=== PATIENT | male | born 1970 | race Caucasian/White ===

== ENCOUNTER 2023-12-09 08:45 | Inpatient (IN) | payer OTHER, SELFPAY ==
--- NOTE | 2023-12-09 | ECG_ITS ---
Test Reason : CHECK QT Blood Pressure : / mmHG Vent. Rate : 090 BPM Atrial Rate : 090 BPM P-R Int : 170 ms QRS Dur : 084 ms QT Int : 376 ms P-R-T Axes : 055 -08 048 degrees QTc Int : 459 ms Normal sinus rhythm with sinus arrhythmia Normal ECG No previous ECGs available Referred By: Venus Womack Electronically Signed By:ANIL SY MD
[2023-12-09 08:58] VITALS: BP 150/80; PULSE 109; O2SAT 96
[2023-12-09 09:00] VITALS: BP 146/97; PULSE 108; RESP 18; TEMP 36.8; O2SAT 97; BMI 26.6
[2023-12-09 09:05] VITALS: BP 146/97; PULSE 108; RESP 18; TEMP 36.8; O2SAT 97
--- NOTE | 2023-12-09 09:07 | ED_ITS ---
HPI - Psych General Chief Complaint: Psychiatric Symptoms Stated Complaint: PSYCH Time Seen by Provider: 12/09/23 08:54 Source: patient, EMS and old records reviewed Mode of arrival: EMS Limitations: no limitations History of Present Illness HPI Narrative: 53 yo male on chronic methadone and ?hx of schizophrenia though he tells me he has no mental health problems was getting his methadone dose and has gone there for a couple of years reportedly he presented very different from his baseline - talking to himself, driving erratic and making a scene in the parking lost, talking to himself loudly in the bathroom and was in the bathroom for over an hour. He of course denies this to me. complaint: anxiety and other Onset (ago): unknown Duration: constant History of same: No Relieving factors: none Exacerbating factors: other Associated psychiatric symptoms: none Associated symptoms: denies other symptoms Treatments prior to arrival: none Related Data Home Medications ?Medication ?Instructions ?Recorded ?Confirmed clonidine HCl 0.1 mg tablet 0.1 mg PO BID PRN Anxiety 12/09/23 12/09/23 risperidone 4 mg tablet 4 mg PO BEDTIME 12/09/23 12/09/23 Allergies Allergy/AdvReac Type Severity Reaction Status Date / Time No Known Allergies Allergy Verified 12/09/23 09:04 Review of Systems 2 Review of Systems: Constitutional : No Fever, No Chills ENT/Mouth : No Ear Pain, No Nasal Congestion, No sore throat Eyes: No Eye Pain, No Swelling, No Redness Cardiovascular : No Chest Pain, No SOB Respiratory : No Cough, No Sputum, No Dyspnea Gastrointestinal : No Nausea, No Vomiting, No Diarrhea, No Hematochezia, No Melena Genitourinary : No Dysuria, No Urinary Frequency, No Hematuria Musculoskeletal : No Myalgias Skin : No Skin Lesions, No rash Neuro : No Weakness, No Numbness, No Paresthesias, No Dizziness, No Headache Psych : positive Anxiety, no Depression, no SI/HI All other systems reviewed and are negative [facility] Past Medical History Attestation statement: The following information was validated with the patient. Medical History Opiate use Social History Social History (Updated 12/09/23 @ 10:03 by Venus Womack DO) Patient Tobacco Use Status: Current everyday Tobacco user Smoked in Last 30 Days: Yes Use of substances other than those prescribed or required for medical reasons: No Advance Directives: No Advance Directives Information Provided: No Do you have a plan to hurt others: No Plan Physical Exam 2 Vital Signs: Vital Signs: Last Vital Signs Temp 98.2 F 12/09/23 09:05 Pulse 108 H 12/09/23 09:05 Resp 18 12/09/23 09:05 BP 146/97 H 12/09/23 09:05 Pulse Ox 97 12/09/23 09:05 O2 Del Method Room Air 12/09/23 09:05 BMI result Body Mass Index 26.6 Appearance: Alert. Oriented X2. No acute distress. Anxious pacing very animated Eyes: Pupils equal, round and reactive to light. ENT: Pharynx normal. Neck: Normal inspection. Neck supple. CVS: Normal heart rate and rhythm. Pulses normal. Respiratory: No respiratory distress. Breath sounds normal. Abdomen: Soft and nontender. Skin: Skin warm and dry. Normal skin color. Normal skin turgor. Extremities: No lower extremity edema. No calf ttp Neuro: Oriented X 2. No motor deficit. No sensory deficit. CN2-12 intact Course Course Course Narrative: S12 inpatient bed search has hx of schizophrenia not taking medications Reevaluation(s) Reevaluation #1: observation care revealed that the patient does meet psychiatric necessity for hospitalization. final disposition discussed with the patient. The patient completed observation care at 3pm. Total time in observation care was 5 hours. Medications Administered Generic Name Dose Route Start Last Admin Trade Name Freq PRN Reason Stop Dose Admin Nicotine Polacrilex 2 mg 12/09/23 09:20 12/09/23 13:21 Nicotine Polacrilex 2 Mg Gum BUCCAL 2 mg Q2H PRN Administration Nicotine Cravings Discontinued Medications Generic Name Dose Route Start Last Admin Trade Name Freq PRN Reason Stop Dose Admin Olanzapine 10 mg 12/09/23 09:29 12/09/23 09:36 Olanzapine Odt 10 Mg Tab.Bridgettdis TRANSLINGU 12/09/23 09:30 10 mg ONCE ONE Administration Medical Decision Making Medical Decision Making [facility] Narrative: 53 yo male with PMH of drug abuse and possible schizophrenia maybe off medications it is unclear he is not forthcoming here with erratic behaviors at his methadone clinic at this time labs, CARE team consult, PO zyprexa ordered. Differential Diagnosis Differential Diagnoses: The differential diagnosis associated with the presentation includes drug abuse, mental health issues Admission/Observation Consideration of admission/observation: Escalation of care including admission/observation considered physician observation started at 1007am pending CARE team consult Consult Healthcare Provider Management of the patient was discussed with: Behavioral Health Provider Lab Data [facility] Lab Attestation statement: I reviewed the patient's lab results. 12/09/23 09:31 12/09/23 09:31 Labs: Lab Results 12/09/23 12/09/23 Range/Units 09:31 12:43 WBC 7.3 (4.8-10.8) X10*3/uL RBC 5.07 (4.60-5.80) X10*6/uL Hgb 15.4 (14.0-18.0) g/dl Hct 43.5 (42.0-52.0) % MCV 85.8 (80.0-98.0) fL MCH 30.4 (27.0-33.0) pg MCHC 35.4 (31.0-36.0) g/dl RDW 12.4 (11.0-16.0) % Plt Count 208 (160-400) X10*3/uL MPV 10.7 (9.4-12.4) fL Immature Gran % (Auto) 0.4 (0.0-0.4) % Neut % (Auto) 75.8 H (45-73) % Lymph % (Auto) 18.8 L (20-40) % Door % (Auto) 4.7 (2-11) % Eos % (Auto) 0.0 (0-4) % Baso % (Auto) 0.3 (0-2) % Lymph # (Auto) 1.4 (1.2-4.9) X10*3/uL Door # (Auto) 0.3 (0.1-1.2) X10*3/uL Eos # (Auto) 0.0 (0.0-0.4) X10*3/uL Baso # (Auto) 0.0 (0.0-0.2) X10*3/uL Abs Immat Gran (auto) 0.03 (0.00-0.03) X10*3/uL Absolute Neuts (auto) 5.5 (2.0-8.3) x10*3/uL Absolute Nucleated RBC 0.000 (0.0-0.012) X10*3/uL Nucleated RBC % (auto) 0.0 (0.0-0.2) /100WBC Sodium 138 (135-145) mmol/L Potassium 4.7 (3.3-5.1) mmol/L Chloride 104 (96-108) mmol/L Carbon Dioxide 20 L (22-29) mmol/L Anion Gap 19 (12-20) BUN 14 (9-16) mg/dL Creatinine 1.36 (0.5-1.4) mg/dL Estim Creat Clear Calc 51.7 Estimated GFR 55 Random Glucose 185 H (60-115) mg/dL Calcium 9.4 (8.4-10.2) mg/dL Magnesium 2.0 (1.6-2.6) mg/dL Total Bilirubin 0.4 (0.0-1.0) mg/dL Direct Bilirubin 0.1 (0.0-0.5) mg/dL AST 27 (5-37) U/L ALT 29 (0-40) U/L Alkaline Phosphatase 97 (39-117) U/L Total Protein 8.3 H (6.5-8.0) g/dL Albumin 4.5 (3.5-5.0) g/dL TSH 1.27 (0.32-4.0) uIU/mL Urine Color Yellow Urine Appearance Clear Urine pH 6.0 (5.0-9.0) Ur Specific [place] 1.010 (1.005-1.025) Urine Protein Negative (Neg-Trace) mg/dL Urine Glucose (UA) Negative (Negative) mg/dL Urine Ketones Negative (Negative) mg/dL Urine Blood Negative (Negative) Urine Nitrite Negative (Negative) Ur Leukocyte Esterase Trace H (Negative) Urine RBC 0-2 (0-2) /HPF Urine WBC 0-5 (0-5) /HPF Ur Squamous Epith Cells 0-2 (0-2) /HPF Urine Bacteria None Seen (None Seen) Hyaline Casts 0-2 (0-2) /LPF Urine Opiates Screen Not Detected (Not Detect) Ur Buprenorphine Scrn Not Detected (Not Detect) ng/mL Ur Oxycodone Screen Not Detected (Not Detect) ng/mL Urine Methadone Screen Positive H (Not Detect) ng/mL Urine Fentanyl Screen POSITIVE H (Not Detect) Ur Barbiturates Screen Not Detected (Not Detect) Ur Phencyclidine Scrn Not Detected (Not Detect) Ur Amphetamines Screen Not Detected (Not Detect) U Benzodiazepines Scrn Not Detected (Not Detect) Urine Cocaine Screen Not Detected (Not Detect) U Marijuana (THC) Screen Not Detected (Not Detect) Ethyl Alcohol < 10 mg/dL Independent Historian Clinical information obtained from an independent historian. History obtained from or confirmed by: EMS External Record Review External record reviewed: Outpatient record Discharge Plan Discharge Clinical Impression: Acute anxiety, Chronic schizophrenia Patient Disposition: Admitted As Inpatient Interventions: [place]-Suicide Risk Severity Scale Last Done: 12/09/23 09:13 Admission Worksheet (ED) Last Done: 12/09/23 14:51 Discharge Date/Time: 12/09/23 14:52
[2023-12-09 09:34] LABS: MANUAL DIFF FLAG NO
[2023-12-09 09:36] LABS: Basophils Percent Auto 0.3 % (0-2); Hematocrit 43.5 % (42.0-52.0); Hemoglobin 15.4 g/dl (14.0-18.0); Imm Gran Abs Auto 0.03 X10*3/uL (0.00-0.03); Imm Gran Pct Auto 0.4 % (0.0-0.4); Lymphocytes Absolute Auto 1.4 X10*3/uL (1.2-4.9); Lymphocytes Percent Auto 18.8 % (20-40); Mean Corpuscular HGB Conc 35.4 g/dl (31.0-36.0); Mean Corpuscular Hemoglobin 30.4 pg (27.0-33.0); Mean Corpuscular Volume 85.8 fL (80.0-98.0); Mean Platelet Volume 10.7 fL (9.4-12.4); Monocytes Absolute Auto 0.3 X10*3/uL (0.1-1.2); Monocytes Percent Auto 4.7 % (2-11); Neutrophils Absolute Auto 5.5 x10*3/uL (2.0-8.3); Neutrophils Percent Auto 75.8 % (45-73); Platelet Count 208 X10*3/uL (160-400); Red Blood Count 5.07 X10*6/uL (4.60-5.80); Red Cell Distribution Width 12.4 % (11.0-16.0); White Blood Count 7.3 X10*3/uL (4.8-10.8)
[2023-12-09] MEDS: OLANZapine ODT 10 MG TAB.RAPDIS TRANSLINGU (09:36)
[2023-12-09] MEDS: Nicotine Polacrilex 2 MG GUM BUCCAL ×2 (09:40→13:21)
[2023-12-09 10:04] LABS: Alanine Aminotransferase 29 U/L (0-40); Albumin Level 4.5 g/dL (3.5-5.0); Alkaline Phosphatase 97 U/L (39-117); Anion Gap 19 (12-20); Aspartate Amino Transferase 27 U/L (5-37); Bilirubin Direct 0.1 mg/dL (0.0-0.5); Bilirubin Total 0.4 mg/dL (0.0-1.0); Blood Urea Nitrogen 14 mg/dL (9-16); Calcium 9.4 mg/dL (8.4-10.2); Carbon Dioxide 20 mmol/L (22-29); Chloride 104 mmol/L (96-108); Creatinine Clr Calc Pharmacy 51.7; Estimated Glomerular Filt Rate 55; Ethanol < 10 mg/dL; Glucose Random 185 mg/dL (60-115); Potassium 4.7 mmol/L (3.3-5.1); Sodium 138 mmol/L (135-145); Total Protein 8.3 g/dL (6.5-8.0)
[2023-12-09 10:12] LABS: TSH reflex Free T4 1.27 uIU/mL (0.32-4.0)
--- NOTE | 2023-12-09 10:20 | PC.NURSE ---
DIANNE Clement after the patient was acting erratic at the facility locking himself in the bathroom for 45 minutes to an hour; splashing water all over. Per EMS report the patient was being seen for schizophrenia and being off medications. At the time of admission the patient denies suicidal and homicidal ideations as well as denies auditory and visual hallucinations. Patient is calm, cooperative and pleasant with staff.
--- NOTE | 2023-12-09 11:11 | MHC.CARE ---
Left VM for patient's mother, Kirti, , no PHI disclosed, requesting call back.
[2023-12-09 12:59] LABS: Amphetamine Screen Urine Not Detected (Not Detect); Barbiturates, Urine Not Detected (Not Detect); Benzodiazepines Screen Urine Not Detected (Not Detect); Buprenorphine Scr Not Detected (Not Detect); Cannabinoid Screen Urine Not Detected (Not Detect); Cocaine Screen Urine Not Detected (Not Detect); Fentanyl, urine POSITIVE (Not Detect); Methadone Screen, Urine Positive (Not Detect); Opiate Screen Urine Not Detected (Not Detect); Oxycodone Screen Urine Not Detected (Not Detect); Phencyclidine Screen Urine Not Detected (Not Detect)
[2023-12-09 13:17] LABS: Appearance Urine Clear; Color Urine Yellow; Glucose Urine UA Negative (Negative); Leukocyte Esterase Urine Trace (Negative); Nitrite Urine Negative (Negative); UMIC TRIGGER UACC YES; Urine Blood Negative (Negative); Urine Ketones Negative (Negative); Urine Protein Negative (Neg-Trace)
[2023-12-09 13:28] LABS: Bacteria Urine None Seen (None Seen); Hyaline Casts Urine 0-2 /LPF (0-2); RBC Urine 0-2 /HPF (0-2); Squamous Epithelial Cell Urine 0-2 /HPF (0-2); WBC Urine 0-5 /HPF (0-5)
[2023-12-09 15:13] VITALS: BMI 29.0
--- NOTE | 2023-12-09 15:49 | P.HPPS_ITS ---
HPI Date of Service: 12/09/23 Chief Complaint: Psychosis HPI Narrative: per CARE team kennedy, pt was BIBA from [facility], where he was noted to have been behaving bizarrely and erratically and displaying signs of psychosis or intoxication. per RN Marion at [facility], pt was not acting himself. he had parked poorly in the lot, clearly RIS and drawing attention for it, randomly deploying the [employer] wipers, having a car smelling of burnt rubber in the cabin, nodding off. he became agitated and police/EMS were called out of concern he was going to drive impaired. he was redirected by [facility] to a bathroom at the facility, where he stayed for an hour babbling, no words were comprehensible, but non-stop talking. pt then became more engageable and was amenable to transport to [facility]. per collateral from pt's sister alda, pt recently lost his job. she believes that that status change may be related to this presentation. she informed CARE team that he recently told her he believes people are following him, he is afraid for his safety, eight people are talking to him. pt is reportedly not compliant with psychiatric medications. Desirae with [facility] informed CARE team that pt had recently reported to precriber that people are trying to hurt him and that an WARREN had jennifer discussed for him. on interview with on unit, pt presents as diminutive, resigned. acknowledges he has been using opioids and that his behaviors this morning can be attributed to intoxication. he c/o craving and asks that methadone dosing be increased to 12 mg daily, which is agreed to. reports hearing all the time of bosses GPSing me. describes akathisia with any medication he has been on in the past for the AH. per collateral from [facility] pharmacy, the only two he's been on in the past year are olanzapine to 15 mg daily and risperidone to 4 mg daily. pt states he doesn't want to take anything other than ativan; informs him ativan will not be prescribed for him as it is not indicated for his condition. informs pt he will obtain collateral from [facility] and Rx something unlikely to cause akathisia but which pt has never tried. pt states he will not take it, MD expresses hope he does otherwise. Past Psychiatric History: hosps: none SA: none SIB: none HIB: none outpt: seen at [facility] clinic by [facility] resident Dr. Montes. per sister, psychotic Sx began about 2 years ago. for the past 7 months. no prior mental health care. Medical Evaluation Reviewed: Yes [facility] Medical History Opiate use Narrative: denies medical probs Family History: per sister, no known FH of mental illness. Social History: until 2 years ago worked and supported himself, lived in his apartment alone. 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 reports he has lived alone in his [facility] for 27 years. spent most of his life in [place]. reports close family, father , mother living. 2 sisters and 1 brother, all supportive of him. has a 27 yo daughter living in [place]. HS Grad. attended trade school. presently unemployed. income is unemployment benefits. Substance History: opioids - h/o opioid use disorder, on methadone maintenance 7 mg daily. utox methadone and fentanyl POS. sister section 35d him one year ago. reports getting hooked on percocet 5-7 years ago after surgery, has been using since. admits using [employer]. alcohol - denies use other drugs - denies use nicotine - 1/2 ppd cannabis - none Trauma History: denies Diagnostics Vital Signs (24Hr): Vital Signs - 24 hr 12/09/23 09:00 12/09/23 09:05 Temperature 98.2 F 98.2 F Pulse Rate 108 H 108 H Respiratory Rate 18 18 Blood Pressure 146/97 H 146/97 H Pulse Oximetry 97 97 Oxygen Delivery Method Room Air Room Air BMI result Body Mass Index 29.0 Labs 12/09/23 09:31 12/09/23 09:31 Labs: Laboratory Results - last 48 hr 12/09/23 12/09/23 09:31 12:43 WBC 7.3 RBC 5.07 Hgb 15.4 Hct 43.5 MCV 85.8 MCH 30.4 MCHC 35.4 RDW 12.4 Plt Count 208 MPV 10.7 Immature Gran % (Auto) 0.4 Neut % (Auto) 75.8 H Lymph % (Auto) 18.8 L [place] % (Auto) 4.7 Eos % (Auto) 0.0 Baso % (Auto) 0.3 Lymph # (Auto) 1.4 [place] # (Auto) 0.3 Eos # (Auto) 0.0 Baso # (Auto) 0.0 Abs Immat Gran (auto) 0.03 Absolute Neuts (auto) 5.5 Absolute Nucleated RBC 0.000 Nucleated RBC % (auto) 0.0 Sodium 138 Potassium 4.7 Chloride 104 Carbon Dioxide 20 L Anion Gap 19 BUN 14 Creatinine 1.36 Estim Creat Clear Calc 51.7 Estimated GFR 55 Random Glucose 185 H Calcium 9.4 Magnesium 2.0 Total Bilirubin 0.4 Direct Bilirubin 0.1 AST 27 ALT 29 Alkaline Phosphatase 97 Total Protein 8.3 H Albumin 4.5 TSH 1.27 Urine Color Yellow Urine Appearance Clear Urine pH 6.0 Ur Specific [place] 1.010 Urine Protein Negative Urine Glucose (UA) Negative Urine Ketones Negative Urine Blood Negative Urine Nitrite Negative Ur Leukocyte Esterase Trace H Urine RBC 0-2 Urine WBC 0-5 Ur Squamous Epith Cells 0-2 Urine Bacteria None Seen Hyaline Casts 0-2 Urine Opiates Screen Not Detected Ur Buprenorphine Scrn Not Detected Ur Oxycodone Screen Not Detected Urine Methadone Screen Positive H Urine Fentanyl Screen POSITIVE H Ur Barbiturates Screen Not Detected Ur Phencyclidine Scrn Not Detected Ur Amphetamines Screen Not Detected U Benzodiazepines Scrn Not Detected Urine Cocaine Screen Not Detected U Marijuana (THC) Screen Not Detected Ethyl Alcohol < 10 Meds/Allergies Meds Home Medications ?Medication ?Instructions ?Recorded ?Confirmed ?Type clonidine HCl 0.1 mg tablet 0.1 mg PO BID PRN Anxiety 12/09/23 12/09/23 History risperidone 4 mg tablet 4 mg PO BEDTIME 12/09/23 12/09/23 History Allergies Allergies Allergy/AdvReac Type Severity Reaction Status Date / Time No Known Allergies Allergy Verified 12/09/23 09:04 Mental Status Exam Mental Status Exam Narrative: diminutive, adequately dressed and groomed in [facility]. cooperative, no PMA/PMR. speech nml rate, amount. decr loudness, nml latency, flattened tone. thoughts linear and logical. affect constricted, hypo-intense, non-labile. mood average. \denies SI/HI/VH. endorses AH of his bosses GPSing me. Assessment & Plan Assessment & Plan (1) Unspecified psychosis: Status: Acute Code(s): F29 - Unspecified psychosis not due to a substance or known physiological condition (2) Opioid use disorder: Status: Acute Code(s): F11.90 - Opioid use, unspecified, uncomplicated Plan DC risperidone due to akathisia. [facility], pt also has been on olanzapine in the past 2 years (no other antipsychotics [facility]). try thorazine 50 mg PO QHS for reduced likelihood of akathisia. pt reports ongoing opioid misuse, asks to increase methadone to 12 mg daily for cravings. MD agrees. Patient educated on: diagnosis, medication risk/benefits and substance abuse Reason for continued inpatient stay Substantial Risk for: inability to function Statement Statement: I have reviewed the history and physical and performed a pertinent examination on my patient. No changes have occurred unless specified. If the History and Physical was not performed prior to admission, the Hospitalist's service will be consulted for completing the admission physical. Time Spent With Patient Time: Total time managing care of this patient today __55__ minutes.
[2023-12-09 15:54] VITALS: BP 139/76; PULSE 99; RESP 16; TEMP 36.9; O2SAT 99
--- NOTE | 2023-12-09 18:23 | PC.ADMIT ---
Latisha was admitted to at 1455 from [facility] POD on a CV for treatment of unspecified psychosis. Prior to admission the patient was evaluated by [facility] crisis and subsequently brought to [facility] due to acting erratically and delusional at [facility], where the patient goes for Methadone treatment. Per patient report, he used heroin/fentanyl and then went to [facility], where he had the episode. According to the crisis eval, the patient was reported to ?not be acting himself? including visibly responding to internal stimuli, driving his car dangerously in the parking lot, and appearing sedated. EMS/PD was initially called and subsequently the crisis team. Per the patient, he has been hearing the voices of his ex coworkers, eight or nine of them from a previous company, coming through his radio for years. They reportedly ?torment? him with statements such as ?we know what you did; you belong in shelter; you?re worthless,? etc. Patient later stated during assessment that he hears these voices at all times, regardless of being in the car. At admission, the patient was alert and oriented x 4. He was also calm, cooperative, pleasant and willing to engage with RN. He has ongoing anxiety and depression due to recent of stressors of losing his job and constantly hearing the voices. The patient does appear to lack insight into the voices being auditory hallucinations. He reports broken sleep patterns as a result of the ongoing voices as well. Pt is an everyday smoker and requested nicotine replacement therapy. His tox screen was positive for methadone and fentanyl. Per patient, he only uses occasionally and ?hates to use drugs, but they drown out the voices.? No known allergies or medical diagnoses at this time. No physical complaints noted. Pt oriented to unit. Skin check performed. Pt has surgical scarring to abdomen from reported surgery when he was a child. Otherwise, skin intact. Pt reports feeling safe on the unit and denies SI/HI, as well as AH/VH. Patient placed on 15 minute checks for safety.
[2023-12-09 19:54] VITALS: BP 124/71; PULSE 71; RESP 16; TEMP 36.5; O2SAT 96
[2023-12-09] MEDS: chlorproMAZINE HCl 25 MG TABLET 50 MG PO (21:27)
[2023-12-09] MEDS: traZODone HCL 50 MG TABLET PO (21:29)
[2023-12-09] MEDS: hydrOXYzine HCL 25 MG TABLET PO (21:29)
[2023-12-10 07:15] VITALS: BP 105/56; PULSE 67; RESP 14; TEMP 36.4; O2SAT 96
[2023-12-10] MEDS: methADONE HCl 20 MG/2 ML ORAL.CONC 12 MG PO (08:27)
--- NOTE | 2023-12-10 10:41 | P.PNPSI_ITS ---
Subjective Subjective Date of Service: 12/10/23 Reason For Visit: Psychosis Subjective Notes: Conditional Voluntary Interim History: Patient was seen and discussed in rounds today. Records and plans were reviewed. He has settled in. No behavioral problems. Continues to show signs of response to internal stimuli. He has been medication compliant. Labs were reviewed. Eating and sleeping adequately. No complaints or side effects. No changes were made today Medication Compliance: Yes Side effects from medications: No Review of Systems Review of Systems Yes all other systems are reviewed and are negative Mental Status Exam Mental Status Exam Narrative: In today's visit he is alert, oriented and interactive. Normal speech. Little eye contact. Affect is subdued. Denies any visual hallucinations. No overt delusions. Admits to auditory hallucinations. No SI/HI. Cognitively is grossly intact. Judgment is intact Diagnostics Vital Signs (24Hr): Vital Signs - 24 hr 12/09/23 15:54 12/09/23 19:54 12/10/23 07:15 Temperature 98.5 F 97.7 F 97.6 F Pulse Rate 99 71 67 Respiratory Rate 16 16 14 Blood Pressure 139/76 124/71 105/56 L Pulse Oximetry 99 96 96 Oxygen Delivery Method Room Air Room Air Room Air BMI result Body Mass Index 29.0 Labs 12/09/23 09:31 12/09/23 09:31 Labs: Laboratory Results - last 48 hr 12/09/23 12/09/23 09:31 12:43 WBC 7.3 RBC 5.07 Hgb 15.4 Hct 43.5 MCV 85.8 MCH 30.4 MCHC 35.4 RDW 12.4 Plt Count 208 MPV 10.7 Immature Gran % (Auto) 0.4 Neut % (Auto) 75.8 H Lymph % (Auto) 18.8 L [place] % (Auto) 4.7 Eos % (Auto) 0.0 Baso % (Auto) 0.3 Lymph # (Auto) 1.4 [place] # (Auto) 0.3 Eos # (Auto) 0.0 Baso # (Auto) 0.0 Abs Immat Gran (auto) 0.03 Absolute Neuts (auto) 5.5 Absolute Nucleated RBC 0.000 Nucleated RBC % (auto) 0.0 Sodium 138 Potassium 4.7 Chloride 104 Carbon Dioxide 20 L Anion Gap 19 BUN 14 Creatinine 1.36 Estim Creat Clear Calc 51.7 Estimated GFR 55 Random Glucose 185 H Calcium 9.4 Magnesium 2.0 Total Bilirubin 0.4 Direct Bilirubin 0.1 AST 27 ALT 29 Alkaline Phosphatase 97 Total Protein 8.3 H Albumin 4.5 TSH 1.27 Urine Color Yellow Urine Appearance Clear Urine pH 6.0 Ur Specific [place] 1.010 Urine Protein Negative Urine Glucose (UA) Negative Urine Ketones Negative Urine Blood Negative Urine Nitrite Negative Ur Leukocyte Esterase Trace H Urine RBC 0-2 Urine WBC 0-5 Ur Squamous Epith Cells 0-2 Urine Bacteria None Seen Hyaline Casts 0-2 Urine Opiates Screen Not Detected Ur Buprenorphine Scrn Not Detected Ur Oxycodone Screen Not Detected Urine Methadone Screen Positive H Urine Fentanyl Screen POSITIVE H Ur Barbiturates Screen Not Detected Ur Phencyclidine Scrn Not Detected Ur Amphetamines Screen Not Detected U Benzodiazepines Scrn Not Detected Urine Cocaine Screen Not Detected U Marijuana (THC) Screen Not Detected Ethyl Alcohol < 10 Medications Medications Current Medications Acetaminophen (Acetaminophen 325 Mg Tablet) 650 mg PO Q6H PRN PRN Reason: Headache/Pain Mild Scale (1-3) Al Hydroxide/Mg Hydroxide (Magnesium Hydrox/Alum Hydrox 30 Ml Oral.Susp) 30 ml PO Q6H PRN PRN Reason: Heartburn/Nausea Chlorpromazine HCl (Chlorpromazine Hcl 25 Mg Tablet) 50 mg PO BEDTIME SANDRITA Last Admin: 12/09/23 21:27 Dose: 50 mg Clonidine HCl (Clonidine Hcl 0.1 Mg Tablet) 0.1 mg PO BID PRN; Protocol PRN Reason: severe anxiety Hydroxyzine HCl (Hydroxyzine Hcl 25 Mg Tablet) 25 mg PO Q6H PRN PRN Reason: Anxiety Last Admin: 12/09/23 21:29 Dose: 25 mg Magnesium Hydroxide (Milk Of Magnesia 30 Ml Oral.Susp) 30 ml PO DAILY PRN PRN Reason: Constipation Methadone HCl (Methadone Hcl 20 Mg/2 Ml Oral.Conc) 12 mg PO DAILY SANDRITA Last Admin: 12/10/23 08:27 Dose: 12 mg Nicotine Polacrilex (Nicotine Polacrilex 2 Mg Gum) 2 mg BUCCAL Q2H PRN PRN Reason: Nicotine Cravings Last Admin: 12/09/23 13:21 Dose: 2 mg Trazodone HCl (Trazodone Hcl 50 Mg Tablet) 50 mg PO BEDTIME MRX1 PRN PRN Reason: Insomnia Last Admin: 12/09/23 21:29 Dose: 50 mg Allergies Allergies Allergy/AdvReac Type Severity Reaction Status Date / Time No Known Allergies Allergy Verified 12/09/23 09:04 Assessment & Plan Assessment & Plan (1) Unspecified psychosis: Status: Acute Code(s): F29 - Unspecified psychosis not due to a substance or known physiological condition (2) Opioid use disorder: Status: Acute Code(s): F11.90 - Opioid use, unspecified, uncomplicated Plan DC risperidone due to akathisia. [facility], pt also has been on olanzapine in the past 2 years (no other antipsychotics [facility]). try thorazine 50 mg PO QHS for reduced likelihood of akathisia. pt reports ongoing opioid misuse, asks to increase methadone to 12 mg daily for cravings. agrees. 12/09: Continue current treatment and plan Reason for continued inpatient stay Substantial Risk for: med/psych decompensation Time Spent With Patient Time: Total time managing care of this patient today ____ minutes.
--- NOTE | 2023-12-10 12:23 | HO.PSYCHPN ---
Subjective Subjective Date of Service: 12/10/23 Reason For Visit: Psychosis Subjective Notes: Conditional Voluntary Diagnostics Vital Signs (24Hr): Vital Signs - 24 hr 12/09/23 15:54 12/09/23 19:54 12/10/23 07:15 Temperature 98.5 F 97.7 F 97.6 F Pulse Rate 99 71 67 Respiratory Rate 16 16 14 Blood Pressure 139/76 124/71 105/56 L Pulse Oximetry 99 96 96 Oxygen Delivery Method Room Air Room Air Room Air BMI result Body Mass Index 29.0 Labs 12/09/23 09:31 12/09/23 09:31 Labs: Laboratory Results - last 48 hr 12/09/23 12/09/23 09:31 12:43 WBC 7.3 RBC 5.07 Hgb 15.4 Hct 43.5 MCV 85.8 MCH 30.4 MCHC 35.4 RDW 12.4 Plt Count 208 MPV 10.7 Immature Gran % (Auto) 0.4 Neut % (Auto) 75.8 H Lymph % (Auto) 18.8 L [place] % (Auto) 4.7 Eos % (Auto) 0.0 Baso % (Auto) 0.3 Lymph # (Auto) 1.4 [place] # (Auto) 0.3 Eos # (Auto) 0.0 Baso # (Auto) 0.0 Abs Immat Gran (auto) 0.03 Absolute Neuts (auto) 5.5 Absolute Nucleated RBC 0.000 Nucleated RBC % (auto) 0.0 Sodium 138 Potassium 4.7 Chloride 104 Carbon Dioxide 20 L Anion Gap 19 BUN 14 Creatinine 1.36 Estim Creat Clear Calc 51.7 Estimated GFR 55 Random Glucose 185 H Calcium 9.4 Magnesium 2.0 Total Bilirubin 0.4 Direct Bilirubin 0.1 AST 27 ALT 29 Alkaline Phosphatase 97 Total Protein 8.3 H Albumin 4.5 TSH 1.27 Urine Color Yellow Urine Appearance Clear Urine pH 6.0 Ur Specific [place] 1.010 Urine Protein Negative Urine Glucose (UA) Negative Urine Ketones Negative Urine Blood Negative Urine Nitrite Negative Ur Leukocyte Esterase Trace H Urine RBC 0-2 Urine WBC 0-5 Ur Squamous Epith Cells 0-2 Urine Bacteria None Seen Hyaline Casts 0-2 Urine Opiates Screen Not Detected Ur Buprenorphine Scrn Not Detected Ur Oxycodone Screen Not Detected Urine Methadone Screen Positive H Urine Fentanyl Screen POSITIVE H Ur Barbiturates Screen Not Detected Ur Phencyclidine Scrn Not Detected Ur Amphetamines Screen Not Detected U Benzodiazepines Scrn Not Detected Urine Cocaine Screen Not Detected U Marijuana (THC) Screen Not Detected Ethyl Alcohol < 10 Medications Medications Current Medications Acetaminophen (Acetaminophen 325 Mg Tablet) 650 mg PO Q6H PRN PRN Reason: Headache/Pain Mild Scale (1-3) Al Hydroxide/Mg Hydroxide (Magnesium Hydrox/Alum Hydrox 30 Ml Oral.Susp) 30 ml PO Q6H PRN PRN Reason: Heartburn/Nausea Bacitracin (Bacitracin Oint 14 Gm Tube) 1 appl TOPICAL BID PRN; Protocol PRN Reason: Rash Chlorpromazine HCl (Chlorpromazine Hcl 25 Mg Tablet) 50 mg PO BEDTIME SANDRITA Last Admin: 12/09/23 21:27 Dose: 50 mg Clonidine HCl (Clonidine Hcl 0.1 Mg Tablet) 0.1 mg PO BID PRN; Protocol PRN Reason: severe anxiety Hydroxyzine HCl (Hydroxyzine Hcl 25 Mg Tablet) 25 mg PO Q6H PRN PRN Reason: Anxiety Last Admin: 12/09/23 21:29 Dose: 25 mg Magnesium Hydroxide (Milk Of Magnesia 30 Ml Oral.Susp) 30 ml PO DAILY PRN PRN Reason: Constipation Methadone HCl (Methadone Hcl 20 Mg/2 Ml Oral.Conc) 12 mg PO DAILY SANDRITA Last Admin: 12/10/23 08:27 Dose: 12 mg Nicotine Polacrilex (Nicotine Polacrilex 2 Mg Gum) 2 mg BUCCAL Q2H PRN PRN Reason: Nicotine Cravings Last Admin: 12/09/23 13:21 Dose: 2 mg Trazodone HCl (Trazodone Hcl 50 Mg Tablet) 50 mg PO BEDTIME MRX1 PRN PRN Reason: Insomnia Last Admin: 12/09/23 21:29 Dose: 50 mg Allergies Allergies Allergy/AdvReac Type Severity Reaction Status Date / Time No Known Allergies Allergy Verified 12/09/23 09:04 Assessment & Plan Assessment & Plan (1) Unspecified psychosis: Status: Acute Code(s): F29 - Unspecified psychosis not due to a substance or known physiological condition (2) Opioid use disorder: Status: Acute Code(s): F11.90 - Opioid use, unspecified, uncomplicated Plan DC risperidone due to akathisia. per [facility], pt also has been on olanzapine in the past 2 years (no other antipsychotics in [facility] records). try thorazine 50 mg PO QHS for reduced likelihood of akathisia. pt reports ongoing opioid misuse, asks to increase methadone to 12 mg daily for cravings. MD agrees. 12/09: Continue current treatment and plan Time Spent With Patient Time: Total time managing care of this patient today ____ minutes.
[2023-12-10 20:00] VITALS: BP 151/72; PULSE 86; RESP 18; TEMP 36.8; O2SAT 97
[2023-12-10] MEDS: traZODone HCL 50 MG TABLET PO (21:39)
[2023-12-10] MEDS: hydrOXYzine HCL 25 MG TABLET PO (21:39)
[2023-12-10] MEDS: chlorproMAZINE HCl 25 MG TABLET 50 MG PO (21:39)
--- NOTE | 2023-12-10 23:10 | PC.NURSE ---
Latisha was given atarax PO prn for mild anxiety.
[2023-12-11 07:34] VITALS: BP 142/80; PULSE 79; RESP 16; TEMP 36.6; O2SAT 97
[2023-12-11] MEDS: methADONE HCl 20 MG/2 ML ORAL.CONC 12 MG PO (08:32)
--- NOTE | 2023-12-11 09:03 | HO.PSYCHPN ---
Subjective Subjective Date of Service: 12/11/23 Reason For Visit: Psychosis Subjective Notes: Conditional Voluntary Interim History: Patient was seen and discussed in rounds today. Records and plans were reviewed. He continues to be mostly isolative and in his room. Some auditory hallucinations reported. Eating and sleeping adequately. Some anxiety and depression also present. No SI. No side effects. No changes were made today Medication Compliance: Yes Side effects from medications: No Review of Systems Review of Systems Yes all other systems are reviewed and are negative Mental Status Exam Mental Status Exam Narrative: In today's visit he is alert, oriented and interactive. Normal speech. Little eye contact. Affect is subdued. Denies any visual hallucinations. No overt delusions. Admits to auditory hallucinations. No SI/HI. Cognitively is grossly intact. Judgment is intact Diagnostics Vital Signs (24Hr): Vital Signs - 24 hr 12/10/23 20:00 12/11/23 07:34 Temperature 98.3 F 97.8 F Pulse Rate 86 79 Respiratory Rate 18 16 Blood Pressure 151/72 H 142/80 H Pulse Oximetry 97 97 Oxygen Delivery Method Room Air Room Air BMI result Body Mass Index 29.0 Labs 12/09/23 09:31 12/09/23 09:31 Labs: Laboratory Results - last 48 hr 12/09/23 12/09/23 09:31 12:43 WBC 7.3 RBC 5.07 Hgb 15.4 Hct 43.5 MCV 85.8 MCH 30.4 MCHC 35.4 RDW 12.4 Plt Count 208 MPV 10.7 Immature Gran % (Auto) 0.4 Neut % (Auto) 75.8 H Lymph % (Auto) 18.8 L [place] % (Auto) 4.7 Eos % (Auto) 0.0 Baso % (Auto) 0.3 Lymph # (Auto) 1.4 [place] # (Auto) 0.3 Eos # (Auto) 0.0 Baso # (Auto) 0.0 Abs Immat Gran (auto) 0.03 Absolute Neuts (auto) 5.5 Absolute Nucleated RBC 0.000 Nucleated RBC % (auto) 0.0 Sodium 138 Potassium 4.7 Chloride 104 Carbon Dioxide 20 L Anion Gap 19 BUN 14 Creatinine 1.36 Estim Creat Clear Calc 51.7 Estimated GFR 55 Random Glucose 185 H Calcium 9.4 Magnesium 2.0 Total Bilirubin 0.4 Direct Bilirubin 0.1 AST 27 ALT 29 Alkaline Phosphatase 97 Total Protein 8.3 H Albumin 4.5 TSH 1.27 Urine Color Yellow Urine Appearance Clear Urine pH 6.0 Ur Specific [place] 1.010 Urine Protein Negative Urine Glucose (UA) Negative Urine Ketones Negative Urine Blood Negative Urine Nitrite Negative Ur Leukocyte Esterase Trace H Urine RBC 0-2 Urine WBC 0-5 Ur Squamous Epith Cells 0-2 Urine Bacteria None Seen Hyaline Casts 0-2 Urine Opiates Screen Not Detected Ur Buprenorphine Scrn Not Detected Ur Oxycodone Screen Not Detected Urine Methadone Screen Positive H Urine Fentanyl Screen POSITIVE H Ur Barbiturates Screen Not Detected Ur Phencyclidine Scrn Not Detected Ur Amphetamines Screen Not Detected U Benzodiazepines Scrn Not Detected Urine Cocaine Screen Not Detected U Marijuana (THC) Screen Not Detected Ethyl Alcohol < 10 Medications Medications Current Medications Acetaminophen (Acetaminophen 325 Mg Tablet) 650 mg PO Q6H PRN PRN Reason: Headache/Pain Mild Scale (1-3) Al Hydroxide/Mg Hydroxide (Magnesium Hydrox/Alum Hydrox 30 Ml Oral.Susp) 30 ml PO Q6H PRN PRN Reason: Heartburn/Nausea Bacitracin (Bacitracin Oint 14 Gm Tube) 1 appl TOPICAL BID PRN; Protocol PRN Reason: Rash Chlorpromazine HCl (Chlorpromazine Hcl 25 Mg Tablet) 50 mg PO BEDTIME SANDRITA Last Admin: 12/10/23 21:39 Dose: 50 mg Clonidine HCl (Clonidine Hcl 0.1 Mg Tablet) 0.1 mg PO BID PRN; Protocol PRN Reason: severe anxiety Hydroxyzine HCl (Hydroxyzine Hcl 25 Mg Tablet) 25 mg PO Q6H PRN PRN Reason: Anxiety Last Admin: 12/10/23 21:39 Dose: 25 mg Magnesium Hydroxide (Milk Of Magnesia 30 Ml Oral.Susp) 30 ml PO DAILY PRN PRN Reason: Constipation Methadone HCl (Methadone Hcl 20 Mg/2 Ml Oral.Conc) 12 mg PO DAILY SANDRITA Last Admin: 12/11/23 08:32 Dose: 12 mg Nicotine Polacrilex (Nicotine Polacrilex 2 Mg Gum) 2 mg BUCCAL Q2H PRN PRN Reason: Nicotine Cravings Last Admin: 12/09/23 13:21 Dose: 2 mg Trazodone HCl (Trazodone Hcl 50 Mg Tablet) 50 mg PO BEDTIME MRX1 PRN PRN Reason: Insomnia Last Admin: 12/10/23 21:39 Dose: 50 mg Allergies Allergies Allergy/AdvReac Type Severity Reaction Status Date / Time No Known Allergies Allergy Verified 12/09/23 09:04 Assessment & Plan Assessment & Plan (1) Unspecified psychosis: Status: Acute Code(s): F29 - Unspecified psychosis not due to a substance or known physiological condition (2) Opioid use disorder: Status: Acute Code(s): F11.90 - Opioid use, unspecified, uncomplicated Plan 12/10: Continue current regimen and plans Reason for continued inpatient stay Substantial Risk for: rapid decompensation Time Spent With Patient Time: Total time managing care of this patient today ____ minutes.
[2023-12-11] MEDS: Acetaminophen 325 MG TABLET 650 MG PO ×2 (11:08→18:47)
[2023-12-11] MEDS: Nicotine Polacrilex 2 MG GUM BUCCAL (15:43)
[2023-12-11] MEDS: Nicotine 21 MG PATCH.TD24 TRANSDERMA (15:55)
[2023-12-11 20:10] VITALS: BP 142/94; PULSE 86; RESP 18; TEMP 36.4; O2SAT 95
[2023-12-11] MEDS: traZODone HCL 50 MG TABLET PO (21:11)
[2023-12-11] MEDS: chlorproMAZINE HCl 25 MG TABLET 50 MG PO (21:11)
[2023-12-12] MEDS: traZODone HCL 50 MG TABLET PO (02:12)
[2023-12-12 07:40] VITALS: BP 135/65; PULSE 82; RESP 14; TEMP 36.7; O2SAT 96
[2023-12-12] MEDS: methADONE HCl 20 MG/2 ML ORAL.CONC 12 MG PO (08:18)
--- NOTE | 2023-12-12 14:32 | HO.PSYCHPN ---
Subjective Subjective Date of Service: 12/12/23 Reason For Visit: Psychosis Interim History: feeling relatively well, agreeable to increase thorazine at HS and DC trazodone. reports improvement in AH, but that they persist. per staffm c/o dep/anx. +AH. + meds. believes he is being tracked by former coworkers. sleeping 7-8 hours nightly. Mental Status Exam Mental Status Exam Narrative: diminutive, adequately dressed and groomed in [facility]. cooperative, no PMA/PMR. speech nml rate, amount, loudness, latency, flattened tone. thoughts linear and logical. affect flexible, normo-intense, non-labile. mood not assessed. denies SI/HI/VH. endorses AH. Diagnostics Vital Signs (24Hr): Vital Signs - 24 hr 12/11/23 20:10 12/12/23 07:40 Temperature 97.6 F 98.1 F Pulse Rate 86 82 Respiratory Rate 18 14 Blood Pressure 142/94 H 135/65 Pulse Oximetry 95 96 Oxygen Delivery Method Room Air Room Air BMI result Body Mass Index 29.0 Labs 12/09/23 09:31 12/09/23 09:31 Medications Medications Current Medications Acetaminophen (Acetaminophen 325 Mg Tablet) 650 mg PO Q6H PRN PRN Reason: Headache/Pain Mild Scale (1-3) Last Admin: 12/11/23 18:47 Dose: 650 mg Al Hydroxide/Mg Hydroxide (Magnesium Hydrox/Alum Hydrox 30 Ml Oral.Susp) 30 ml PO Q6H PRN PRN Reason: Heartburn/Nausea Bacitracin (Bacitracin Oint 14 Gm Tube) 1 appl TOPICAL BID PRN; Protocol PRN Reason: Rash Chlorpromazine HCl (Chlorpromazine Hcl 100 Mg Tablet) 100 mg PO BEDTIME SANDRITA Clonidine HCl (Clonidine Hcl 0.1 Mg Tablet) 0.1 mg PO BID PRN; Protocol PRN Reason: severe anxiety Hydroxyzine HCl (Hydroxyzine Hcl 25 Mg Tablet) 25 mg PO Q6H PRN PRN Reason: Anxiety Last Admin: 12/10/23 21:39 Dose: 25 mg Magnesium Hydroxide (Milk Of Magnesia 30 Ml Oral.Susp) 30 ml PO DAILY PRN PRN Reason: Constipation Methadone HCl (Methadone Hcl 20 Mg/2 Ml Oral.Conc) 12 mg PO DAILY SANDRITA Last Admin: 12/12/23 08:18 Dose: 12 mg Nicotine (Nicotine 21 Mg Patch.Td24) 21 mg TRANSDERMA DAILY SANDRITA Last Admin: 12/12/23 08:19 Dose: Not Given Nicotine Polacrilex (Nicotine Polacrilex 2 Mg Gum) 2 mg BUCCAL Q2H PRN PRN Reason: Nicotine Cravings Last Admin: 12/11/23 15:43 Dose: 2 mg Trazodone HCl (Trazodone Hcl 50 Mg Tablet) 50 mg PO BEDTIME MRX1 PRN PRN Reason: Insomnia Last Admin: 12/12/23 02:12 Dose: 50 mg Allergies Allergies Allergy/AdvReac Type Severity Reaction Status Date / Time No Known Allergies Allergy Verified 12/09/23 09:04 Assessment & Plan Assessment & Plan (1) Unspecified psychosis: Status: Acute Code(s): F29 - Unspecified psychosis not due to a substance or known physiological condition (2) Opioid use disorder: Status: Acute Code(s): F11.90 - Opioid use, unspecified, uncomplicated Plan 12/10: Continue current regimen and plans 12/11: increase thorazine at HS to 100 mg. DC trazodone. mild improvement in Sx but remains psychotic. Reason for continued inpatient stay Substantial Risk for: inability to function and rapid decompensation Time Spent With Patient Time: Total time managing care of this patient today __25__ minutes.
[2023-12-12] MEDS: Nicotine Polacrilex 2 MG GUM BUCCAL ×2 (15:05→19:12)
[2023-12-12 19:20] VITALS: BP 136/92; PULSE 94; RESP 18; TEMP 36.6; O2SAT 96
[2023-12-12] MEDS: chlorproMAZINE HCl 100 MG TABLET PO (21:10)
[2023-12-13 07:39] VITALS: BP 104/55; PULSE 83; RESP 16; TEMP 36.4; O2SAT 98
[2023-12-13] MEDS: methADONE HCl 20 MG/2 ML ORAL.CONC 12 MG PO (08:26)
--- NOTE | 2023-12-13 11:38 | P.PNPSI_ITS ---
Subjective Subjective Date of Service: 12/13/23 Reason For Visit: Psychosis Interim History: calm, cooperative. reports he is feeling good, sleeping well, and without AH. per staff, bright, visible, taking meds. slept 7 hours. Mental Status Exam Mental Status Exam Narrative: diminutive, adequately dressed and groomed in [facility]. cooperative, no PMA/PMR. speech nml rate, amount, loudness, latency, tone. thoughts linear and logical. affect flexible, normo-intense, non-labile. mood average to happy. denies SI/HI/VH/AH. Diagnostics Vital Signs (24Hr): Vital Signs - 24 hr 12/12/23 19:20 12/13/23 07:39 Temperature 97.9 F 97.6 F Pulse Rate 94 83 Respiratory Rate 18 16 Blood Pressure 136/92 H 104/55 L Pulse Oximetry 96 98 Oxygen Delivery Method Room Air Room Air BMI result Body Mass Index 29.0 Labs 12/09/23 09:31 12/09/23 09:31 Medications Medications Current Medications Acetaminophen (Acetaminophen 325 Mg Tablet) 650 mg PO Q6H PRN PRN Reason: Headache/Pain Mild Scale (1-3) Last Admin: 12/11/23 18:47 Dose: 650 mg Al Hydroxide/Mg Hydroxide (Magnesium Hydrox/Alum Hydrox 30 Ml Oral.Susp) 30 ml PO Q6H PRN PRN Reason: Heartburn/Nausea Bacitracin (Bacitracin Oint 14 Gm Tube) 1 appl TOPICAL BID PRN; Protocol PRN Reason: Rash Chlorpromazine HCl (Chlorpromazine Hcl 100 Mg Tablet) 100 mg PO BEDTIME SANDRITA Last Admin: 12/12/23 21:10 Dose: 100 mg Chlorpromazine HCl (Chlorpromazine Hcl 25 Mg Tablet) 50 mg PO BEDTIME PRN PRN Reason: insomnia Clonidine HCl (Clonidine Hcl 0.1 Mg Tablet) 0.1 mg PO BID PRN; Protocol PRN Reason: severe anxiety Hydroxyzine HCl (Hydroxyzine Hcl 25 Mg Tablet) 25 mg PO Q6H PRN PRN Reason: Anxiety Last Admin: 12/10/23 21:39 Dose: 25 mg Magnesium Hydroxide (Milk Of Magnesia 30 Ml Oral.Susp) 30 ml PO DAILY PRN PRN Reason: Constipation Methadone HCl (Methadone Hcl 20 Mg/2 Ml Oral.Conc) 12 mg PO DAILY SANDRITA Last Admin: 12/13/23 08:26 Dose: 12 mg Nicotine (Nicotine 21 Mg Patch.Td24) 21 mg TRANSDERMA DAILY [facility] Last Admin: 12/13/23 08:39 Dose: Not Given Nicotine Polacrilex (Nicotine Polacrilex 2 Mg Gum) 2 mg BUCCAL Q2H PRN PRN Reason: Nicotine Cravings Last Admin: 12/12/23 19:12 Dose: 2 mg Allergies Allergies Allergy/AdvReac Type Severity Reaction Status Date / Time No Known Allergies Allergy Verified 12/09/23 09:04 Assessment & Plan Assessment & Plan (1) Unspecified psychosis: Status: Acute Code(s): F29 - Unspecified psychosis not due to a substance or known physiological condition (2) Opioid use disorder: Status: Acute Code(s): F11.90 - Opioid use, unspecified, uncomplicated Plan 12/10: Continue current regimen and plans 12/11: increase thorazine at HS to 100 mg. DC trazodone. mild improvement in Sx but remains psychotic. 12/12: sleeping well, denies AH, mood euthymic. continue current mgmt. Reason for continued inpatient stay Substantial Risk for: rapid decompensation Time Spent With Patient Time: Total time managing care of this patient today _25___ minutes.
[2023-12-13] MEDS: Nicotine Polacrilex 2 MG GUM BUCCAL (19:12)
[2023-12-13 20:00] VITALS: BP 131/75; PULSE 92; RESP 18; TEMP 36.4; O2SAT 96
[2023-12-13] MEDS: chlorproMAZINE HCl 100 MG TABLET PO (21:51)
[2023-12-14 08:00] VITALS: BP 134/86; PULSE 90; RESP 16; TEMP 36.4; O2SAT 98
[2023-12-14] MEDS: methADONE HCl 20 MG/2 ML ORAL.CONC 12 MG PO (08:17)
--- NOTE | 2023-12-14 13:53 | P.PNPSI_ITS ---
Subjective Subjective Date of Service: 12/14/23 Reason For Visit: Psychosis Interim History: calm, cooperative, pleasant. reports mood continues to be good, AH much improved ( i can't make out what they're saying ). denies cravings, requests methadone dosing be decreased to 10 mg daily, which is accommodated. slept well. planning for tuesday discharge. per staff, denies but apparently RIS. denies SI/HI. ongoing AH but limited insight. Mental Status Exam Mental Status Exam Narrative: diminutive, adequately dressed and groomed in [facility]. cooperative, no PMA/PMR. speech nml rate, amount, loudness, latency, tone. thoughts linear and logical. affect flexible, normo-intense, non-labile. mood euthymic. no SI/HI/VH expressed. AH minimal. Diagnostics Vital Signs (24Hr): Vital Signs - 24 hr 12/13/23 20:00 12/14/23 08:00 Temperature 97.6 F 97.5 F Pulse Rate 92 90 Respiratory Rate 18 16 Blood Pressure 131/75 134/86 Pulse Oximetry 96 98 Oxygen Delivery Method Room Air Room Air BMI result Body Mass Index 29.0 Labs 12/09/23 09:31 12/09/23 09:31 Medications Medications Current Medications Acetaminophen (Acetaminophen 325 Mg Tablet) 650 mg PO Q6H PRN PRN Reason: Headache/Pain Mild Scale (1-3) Last Admin: 12/11/23 18:47 Dose: 650 mg Al Hydroxide/Mg Hydroxide (Magnesium Hydrox/Alum Hydrox 30 Ml Oral.Susp) 30 ml PO Q6H PRN PRN Reason: Heartburn/Nausea Bacitracin (Bacitracin Oint 14 Gm Tube) 1 appl TOPICAL BID PRN; Protocol PRN Reason: Rash Chlorpromazine HCl (Chlorpromazine Hcl 100 Mg Tablet) 100 mg PO BEDTIME SANDRITA Last Admin: 12/13/23 21:51 Dose: 100 mg Chlorpromazine HCl (Chlorpromazine Hcl 25 Mg Tablet) 50 mg PO BEDTIME PRN PRN Reason: insomnia Clonidine HCl (Clonidine Hcl 0.1 Mg Tablet) 0.1 mg PO BID PRN; Protocol PRN Reason: severe anxiety Hydroxyzine HCl (Hydroxyzine Hcl 25 Mg Tablet) 25 mg PO Q6H PRN PRN Reason: Anxiety Last Admin: 12/10/23 21:39 Dose: 25 mg Magnesium Hydroxide (Milk Of Magnesia 30 Ml Oral.Susp) 30 ml PO DAILY PRN PRN Reason: Constipation Methadone HCl (Methadone Hcl 20 Mg/2 Ml Oral.Conc) 10 mg PO DAILY SANDRITA Nicotine (Nicotine 21 Mg Patch.Td24) 21 mg TRANSDERMA DAILY SANDRITA Last Admin: 12/14/23 08:19 Dose: Not Given Nicotine Polacrilex (Nicotine Polacrilex 2 Mg Gum) 2 mg BUCCAL Q2H PRN PRN Reason: Nicotine Cravings Last Admin: 12/13/23 19:12 Dose: 2 mg Allergies Allergies Allergy/AdvReac Type Severity Reaction Status Date / Time No Known Allergies Allergy Verified 12/09/23 09:04 Assessment & Plan Assessment & Plan (1) Unspecified psychosis: Status: Acute Code(s): F29 - Unspecified psychosis not due to a substance or known physiological condition (2) Opioid use disorder: Status: Acute Code(s): F11.90 - Opioid use, unspecified, uncomplicated Plan 12/10: Continue current regimen and plans 12/11: increase thorazine at HS to 100 mg. DC trazodone. mild improvement in Sx but remains psychotic. 12/12: sleeping well, denies AH, mood euthymic. continue current mgmt. 12/13: continues to sleep well. AH minimal. asks to decrease methadone, which is done, from 12 mg daily to 10 mg daily as of tomorrow. planning for tuesday discharge. Reason for continued inpatient stay Substantial Risk for: inability to function and rapid decompensation Time Spent With Patient Time: Total time managing care of this patient today __25__ minutes.
[2023-12-14] MEDS: Nicotine Polacrilex 2 MG GUM BUCCAL ×2 (15:58→18:51)
[2023-12-14 19:30] VITALS: BP 132/90; PULSE 99; RESP 18; TEMP 36.7; O2SAT 97
[2023-12-14] MEDS: chlorproMAZINE HCl 100 MG TABLET PO (21:40)
[2023-12-15] MEDS: chlorproMAZINE HCl 25 MG TABLET 50 MG PO (01:03)
--- NOTE | 2023-12-15 02:56 | PC.NURSE ---
Latisha was given Thorazine 50 mg PO prn for insomnia.
[2023-12-15 07:00] VITALS: BMI 29.9
[2023-12-15 08:17] VITALS: BP 115/68; PULSE 95; RESP 20; TEMP 36.6; O2SAT 98
[2023-12-15] MEDS: methADONE HCl 20 MG/2 ML ORAL.CONC 10 MG PO (08:30)
--- NOTE | 2023-12-15 14:01 | PM.PSYDC ---
DS: Providers Provider Date of Service: 12/15/23 Date of admission: 12/09/23 14:11 Primary care physician: Unknown Physician DS: Diagnosis Discharge Diagnosis (1) Unspecified psychosis: Status: Inactive (2) Opioid use disorder: Status: Acute DS: Medications Discharge Medications Home Medications: Home Medications ?Medication ?Instructions ?Recorded ?Confirmed clonidine HCl 0.1 mg tablet 0.1 mg PO BID PRN Anxiety 12/09/23 12/09/23 Previous Rx's ?Medication ?Instructions ?Recorded chlorpromazine 100 mg tablet 100 mg PO BEDTIME 30 days #30 tabs 12/15/23 methadone 10 mg/mL oral 10 mg PO DAILY #0 mL 12/15/23 concentrate (Methadose) Mental Status Exam Mental Status Exam Narrative: diminutive, adequately dressed and groomed in street clothes. cooperative, no PMA/PMR. speech nml rate, amount, loudness, latency, tone. thoughts linear and logical. affect flexible, normo-intense, non-labile. mood average. no SI/HI/AVH. Data Data Completed and Pending Completed studies during hospitalization [Text1]: 12/09/23 12/09/23 09:31 12:43 WBC 7.3 RBC 5.07 Hgb 15.4 Hct 43.5 MCV 85.8 MCH 30.4 MCHC 35.4 RDW 12.4 Plt Count 208 MPV 10.7 Immature Gran % (Auto) 0.4 Neut % (Auto) 75.8 H Lymph % (Auto) 18.8 L Bertie % (Auto) 4.7 Eos % (Auto) 0.0 Baso % (Auto) 0.3 Lymph # (Auto) 1.4 Bertie # (Auto) 0.3 Eos # (Auto) 0.0 Baso # (Auto) 0.0 Abs Immat Gran (auto) 0.03 Absolute Neuts (auto) 5.5 Absolute Nucleated RBC 0.000 Nucleated RBC % (auto) 0.0 Sodium 138 Potassium 4.7 Chloride 104 Carbon Dioxide 20 L Anion Gap 19 BUN 14 Creatinine 1.36 Estim Creat Clear Calc 51.7 Estimated GFR 55 Random Glucose 185 H Calcium 9.4 Magnesium 2.0 Total Bilirubin 0.4 Direct Bilirubin 0.1 AST 27 ALT 29 Alkaline Phosphatase 97 Total Protein 8.3 H Albumin 4.5 TSH 1.27 Urine Color Yellow Urine Appearance Clear Urine pH 6.0 Ur Specific [place] 1.010 Urine Protein Negative Urine Glucose (UA) Negative Urine Ketones Negative Urine Blood Negative Urine Nitrite Negative Ur Leukocyte Esterase Trace H Urine RBC 0-2 Urine WBC 0-5 Ur Squamous Epith Cells 0-2 Urine Bacteria None Seen Hyaline Casts 0-2 Urine Opiates Screen Not Detected Ur Buprenorphine Scrn Not Detected Ur Oxycodone Screen Not Detected Urine Methadone Screen Positive H Urine Fentanyl Screen POSITIVE H Ur Barbiturates Screen Not Detected Ur Phencyclidine Scrn Not Detected Ur Amphetamines Screen Not Detected U Benzodiazepines Scrn Not Detected Urine Cocaine Screen Not Detected U Marijuana (THC) Screen Not Detected Ethyl Alcohol < 10 DS: Summary Hospital Course Hospital Course: per 12/08 admission note: per CARE team kennedy pt was BIB[facility] from [facility], where he was noted to have been behaving bizarrely and erratically and displaying signs of psychosis or intoxication. per JESUS Schultz at [facility], pt was not acting himself. he had parked poorly in the lot, clearly RIS and drawing attention for it, randomly deploying the [employer] wipers, having a car smelling of burnt rubber in the cabin, nodding off. he became agitated and police/EMS were called out of concern he was going to drive impaired. he was redirected by [facility] to a bathroom at the facility, where he stayed for an hour babbling, no words were comprehensible, but non-stop talking. pt then became more engageable and was amenable to transport to [facility]. per collateral from pt's sister alda, pt recently lost his job. she believes that that status change may be related to this presentation. she informed CARE team that he recently told her he believes people are following him, he is afraid for his safety, eight people are talking to him. pt is reportedly not compliant with psychiatric medications. Desirae with [facility] informed CARE team that pt had recently reported to precriber that people are trying to hurt him and that an WARREN had jennifer discussed for him. on interview with on unit, pt presents as diminutive, resigned. acknowledges he has been using opioids and that his behaviors this morning can be attributed to intoxication. he c/o craving and asks that methadone dosing be increased to 12 mg daily, which is agreed to. reports hearing AH all the time of bosses GPSing me. describes akathisia with any medication he has been on in the past for the AH. per collateral from [facility] pharmacy, the only two he's been on in the past year are olanzapine to 15 mg daily and risperidone to 4 mg daily. pt states he doesn't want to take anything other than ativan; informs him ativan will not be prescribed for him as it is not indicated for his condition. informs pt he will obtain collateral from [facility] and Rx something unlikely to cause akathisia but which pt has never tried. pt states he will not take it, expresses hope he does otherwise. Past Psychiatric History: hosps: none SA: none SIB: none HIB: none outpt: seen at [facility] clinic by [facility] resident Dr. Montes. per sister, psychotic Sx began about 2 years ago. for the past 7 months. no prior mental health care. Medical Evaluation Reviewed: Yes [facility] Medical History Opiate use Narrative: denies medical probs Family History: per sister, no known FH of mental illness. Social History: until 2 years ago worked and supported himself, lived in his apartment alone. 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 reports he has lived alone in his condo for 27 years. spent most of his life in sedan. reports close family, father , mother living. 2 sisters and 1 brother, all supportive of him. has a 27 yo daughter living in [place]. HS Grad. attended trade school. presently unemployed. income is unemployment benefits. Substance History: opioids - h/o opioid use disorder, on methadone maintenance 7 mg daily. utox methadone and fentanyl POS. sister section 35d him one year ago. reports getting hooked on percocet 5-7 years ago after surgery, has been using since. 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 alcohol - denies use other drugs - denies use nicotine - 1/2 ppd cannabis - none Trauma History: denies Precis: 12/08: DC risperidone due to akathisia. per [facility], pt also has been on olanzapine in the past 2 years (no other antipsychotics in [facility] records). try thorazine 50 mg PO QHS for reduced likelihood of akathisia. pt reports ongoing opioid misuse, asks to increase methadone to 12 mg daily for cravings. agrees. 12/09: Continue current treatment and plan 12/10: Continue current regimen and plans 12/11: increase thorazine at HS to 100 mg. DC trazodone. mild improvement in Sx but remains psychotic. 12/12: sleeping well, denies AH, mood euthymic. continue current mgmt. 12/13: continues to sleep well. AH minimal. asks to decrease methadone, which is done, from 12 mg daily to 10 mg daily as of tomorrow. planning for tuesday discharge. 12/14: stable, safe. meds reviewed, reconciled, prescribed. 12/15: discharged as per plan. safe and stable. Time Spent with Patient Time attestation: Total time managing care of this patient today __35__ minutes. Discharge Plan Discharge Anticipated Discharge Date/Time: 12/16/23 10:30 Patient Disposition: Home, Self-Care Discharge Diagnosis: Schizophrenia Opioid Use Disorder Referrals: Emelyn Montes (Medication Provider) [Other] - 01/02/24 1:00 pm Physician,Unknown J [Primary Care Provider] - 1 Week Discharge Medications: New chlorpromazine 100 mg Tablet 100 mg PO BEDTIME 30 Days Qty: 30 0RF methadone [Methadose] 10 mg/mL Concentrate 10 mg PO DAILY Qty: 0 0RF Rx Instructions: Partial Fill upon patient request. Continued clonidine HCl 0.1 mg tablet 0.1 mg PO BID PRN (Reason: Anxiety) Discontinued risperidone 4 mg tablet 4 mg PO BEDTIME Discharge Orders: Discharge Order (Routine); Ordered 12/16/23 Ordered By: Ayush Nelson Diet: Advance to usual diet Activity on Discharge: As tolerated Stand Alone Forms: Patient Portal Discharge page, Community Support Print Language: Lithuanian Care Plan Goals: remain safe, stable, and sober in the outpatient treatment setting. Health Concerns: none Plan of Treatment: take medications as prescribed, attend appointments as scheduled Assessment: not at imminent risk of harm to self or others Discharge Date/Time: 12/16/23 10:24
[2023-12-15] MEDS: Magnesium Hydrox/Alum Hydrox 30 ML ORAL.SUSP PO (16:59)
[2023-12-15 20:00] VITALS: BP 133/80; PULSE 100; RESP 16; TEMP 36.9; O2SAT 96
[2023-12-15] MEDS: chlorproMAZINE HCl 100 MG TABLET PO (21:01)
[2023-12-16 08:00] VITALS: BP 120/75; PULSE 80; RESP 14; TEMP 36.4; O2SAT 98
[2023-12-16] MEDS: methADONE HCl 20 MG/2 ML ORAL.CONC 10 MG PO (08:42)
== END 2023-12-16 10:24 | disposition home or self-care (01) | DRG 750 ==
LOC: HO.ED 14:07 → HO.PADLT16 14:23
PROVIDERS: Admitting Provider Social Worker; Emergency Provider Emergency Medicine; Visit Provider Psychiatry & Neurology Psychiatry
DX: F20.9 Schizophrenia, unspecified (principal); F11.20 Opioid dependence, uncomplicated; F17.210 Nicotine dependence, cigarettes, uncomplicated; Z71.6 Tobacco abuse counseling; Z79.899 Other long term (current) drug therapy
CPT/HCPCS: 36415; 80048; 80076; 80307; 81001; 81003; 83735; 84443; 85025; 93005; 99285; S9485

== ENCOUNTER → 2023-12-09 14:00 | Outpatient (BNV) | payer OTHER, SELFPAY | PROVIDERS: Admitting Provider Social Worker; Emergency Provider Emergency Medicine; Visit Provider Internal Medicine Cardiovascular Disease | DX: I49.8 Other specified cardiac arrhythmias (principal) | CPT/HCPCS: 93010 ==

== ENCOUNTER → 2023-12-09 14:11 | Outpatient (BNV) | payer OTHER, SELFPAY | PROVIDERS: Admitting Provider Social Worker; Emergency Provider Emergency Medicine; Visit Provider Psychiatry & Neurology Psychiatry | DX: F29 Unspecified psychosis not due to a substance or known physiological condition (principal); F11.90 Opioid use, unspecified, uncomplicated | CPT/HCPCS: 99231; 99232; 99233 ==

== ENCOUNTER 2024-10-30 09:52 | Inpatient (IN) | payer BC, SELFPAY ==
[2024-10-30 10:05] VITALS: BP 129/80; PULSE 92; RESP 19; TEMP 36.6; O2SAT 98; BMI 28.3
--- NOTE | 2024-10-30 10:06 | ED_ITS ---
HPI - General Adult General Chief complaint: Psychiatric Symptoms Stated complaint: Detox Time Seen by Provider: 10/30/24 10:13 Source: patient Mode of arrival: ambulatory Limitations: no limitations History of Present Illness ED Provider: JUANPABLO FREED narrative: 54 yo male with PMH of opiate use disorder on methadone 28mg daily last dosed today still actively using now here with c/o SI and wanting to hurt himself. He denies any medical complaints or injuries. He is asking to talk to crisis MD complaint: SI Onset (ago): day(s) Severity: moderate Relieving factors: none Exacerbating factors: other Associated symptoms: denies other symptoms Treatments prior to arrival: none Related Data Home Medications ?Medication ?Instructions ?Recorded ?Confirmed methadone 10 mg/mL oral 28 mg PO DAILY 10/31/24 10/31/24 concentrate (Methadose) Allergies Allergy/AdvReac Type Severity Reaction Status Date / Time No Known Allergies Allergy Verified 10/30/24 10:08 Review of Systems 2 Review of Systems: Constitutional : No Fever, No Chills ENT/Mouth : No Ear Pain, No Nasal Congestion, No sore throat Eyes: No Eye Pain, No Swelling, No Redness Cardiovascular : No Chest Pain, No SOB Respiratory : No Cough, No Sputum, No Dyspnea Gastrointestinal : No Nausea, No Vomiting, No Diarrhea, No Hematochezia, No Melena Genitourinary : No Dysuria, No Urinary Frequency, No Hematuria Musculoskeletal : No Myalgias Skin : No Skin Lesions, No rash Neuro : No Weakness, No Numbness, No Paresthesias, No Dizziness, No Headache Psych : positive Anxiety, positive Depression, positive SI no HI All other systems reviewed and are negative [facility] Past Medical History Attestation statement: The following information was validated with the patient. Source: old records reviewed Medical History Unspecified psychosis Opiate use Social History Social History Household Members: None Housing: Apartment Do you presently have visiting nurse or other home services: No Unable to assess alcohol history related to: Unknown Patient Tobacco Use Status: Current everyday Tobacco user Tobacco use type: Cigarette Cigarette Packs Per Day: 1 Cigarettes Per Day: 20.0 Smoked in Last 30 Days: No Use of substances other than those prescribed or required for medical reasons: Yes Substance Use Type: Heroin Substance Use Frequency: Occasionally Last Used Substance: Just Prior to Admission Advance Directives: No Advance Directives Information Provided: Yes Do you have a plan to hurt others: No Plan service: No Sexual orientation: Straight/Heterosexual Physical Exam ED Vital Signs: Vital Signs - 24 hr 10/30/24 14:00 10/30/24 15:42 10/31/24 00:25 Temperature 98 F 97.3 F 97.6 F Pulse Rate 92 80 57 Respiratory Rate 19 15 16 Blood Pressure 129/80 125/79 147/71 H Pulse Oximetry 98 97 100 Oxygen Delivery Method Room Air Room Air Room Air 10/31/24 06:00 Temperature 98.5 F Pulse Rate 74 Respiratory Rate 16 Blood Pressure 108/80 Pulse Oximetry 99 Oxygen Delivery Method Room Air BMI result Body Mass Index 28.3 Appearance: Alert. Oriented X3. No acute distress. Eyes: Pupils equal, round and reactive to light. ENT: Pharynx normal. Neck: Normal inspection. Neck supple. CVS: Normal heart rate and rhythm. Pulses normal. Respiratory: No respiratory distress. Breath sounds normal. Abdomen: Soft and nontender. Skin: Skin warm and dry. Normal skin color. Normal skin turgor. Extremities: No lower extremity edema. No calf ttp Neuro: Oriented X 3. No motor deficit. No sensory deficit. CN2-12 intact Course Course Course Narrative: This is a rapid medical exam performed by Derek Blanca NP: Additional HPI, ROS, PE not included below will be deferred to primary provider. 10/30/24 10:06 Patient is a 54-year-old male with history of OUD currently on methadone at [facility] presenting to the ED stating that he wants to be admitted to the hospital for 3- 4 days to stay clean from heroin. Reports using 1 bag daily for the past 6 months. Also endorsing suicidal ideation. Denies homicidal ideation. Plan: med clearance, CARE team consult Reevaluation(s) Reevaluation #1: 10/31/2024 8 45 AM patient remained stable overnight no issues no new complaint remain in a Section 12 Time: 08:45 Reevaluation #2: Time: 13:45 Date: 10/31/24 Provider: Venus Womack DO Physician observation ended at 1345pm .Patient to be admitted as inpatient to psychiatry. Medications Administered Generic Name Dose Route Start Last Admin Trade Name Isabela PRN Reason Stop Dose Admin Methadone HCl 28 mg 10/31/24 09:00 10/31/24 09:30 Methadone Hcl 20 Mg/2 Ml Oral.Conc PO 28 mg DAILY SANDRITA Administration Discontinued Medications Generic Name Dose Route Start Last Admin Trade Name Isabela PRN Reason Stop Dose Admin Acetaminophen 975 mg 10/30/24 18:03 10/30/24 18:28 Acetaminophen 325 Mg Tablet PO 10/30/24 18:04 Not Given ONCE ONE Ibuprofen 600 mg 10/30/24 18:03 10/30/24 18:28 Ibuprofen 600 Mg Tablet PO 10/30/24 18:04 Not Given ONCE ONE Lorazepam 1 mg 10/30/24 18:12 10/30/24 18:24 Lorazepam 1 Mg Tablet PO 10/30/24 18:13 1 mg ONCE ONE Administration Olanzapine 10 mg 10/30/24 18:12 10/30/24 18:24 Olanzapine 10 Mg Tablet PO 10/30/24 18:13 10 mg ONCE ONE Administration Medical Decision Making Medical Decision Making MDM Narrative: 54 yo male with PMH of opiate use disorder on methadone 28mg daily here with c/o depression and SI at this time will need basic labs, CARE team consult. He denies any current medical issues or complaints. Differential Diagnosis Differential Diagnoses: The differential diagnosis associated with the presentation includes SI, depression, substance abuse Admission/Observation Consideration of admission/observation: Escalation of care including admission/observation considered physician observation started at 1045am pending CARE team Consult Healthcare Provider Management of the patient was discussed with: Behavioral Health Provider Lab Data [facility] Lab Attestation statement: I reviewed the patient's lab results. 10/30/24 11:02 10/30/24 11:02 Labs: Lab Results 10/30/24 10/30/24 Range/Units 11:02 11:21 WBC 9.5 (4.8-10.8) X10*3/uL RBC 4.58 L (4.60-5.80) X10*6/uL Hgb 14.2 (14.0-18.0) g/dl Hct 38.7 L (42.0-52.0) % MCV 84.5 (80.0-98.0) fL MCH 31.0 (27.0-33.0) pg MCHC 36.7 H (31.0-36.0) g/dl RDW 12.0 (11.0-16.0) % Plt Count 207 (160-400) X10*3/uL MPV 10.4 (9.4-12.4) fL Immature Gran % (Auto) 0.1 (0.0-0.4) % Neut % (Auto) 65.5 (45-73) % Lymph % (Auto) 27.3 (20-40) % [place] % (Auto) 6.6 (2-11) % Eos % (Auto) 0.0 (0-4) % Baso % (Auto) 0.5 (0-2) % Lymph # (Auto) 2.6 (1.2-4.9) X10*3/uL [place] # (Auto) 0.6 (0.1-1.2) X10*3/uL Eos # (Auto) 0.0 (0.0-0.4) X10*3/uL Baso # (Auto) 0.1 (0.0-0.2) X10*3/uL Abs Immat Gran (auto) 0.01 (0.00-0.03) X10*3/uL Absolute Neuts (auto) 6.2 (2.0-8.3) x10*3/uL Absolute Nucleated RBC 0.000 (0.0-0.012) X10*3/uL Nucleated RBC % (auto) 0.0 (0.0-0.2) /100WBC Sodium 139 (135-145) mmol/L Potassium 4.3 (3.3-5.1) mmol/L Chloride 105 (96-108) mmol/L Carbon Dioxide 25 (22-29) mmol/L Anion Gap 13 (12-20) BUN 21 H (9-16) mg/dL Creatinine 0.89 (0.5-1.4) mg/dL Estim Creat Clear Calc 86.7 Estimated GFR > 60 Random Glucose 98 (60-115) mg/dL Calcium 9.5 (8.4-10.2) mg/dL Total Bilirubin 0.3 (0.0-1.0) mg/dL AST 32 (5-37) U/L ALT 41 H (0-40) U/L Alkaline Phosphatase 80 (39-117) U/L Total Protein 7.4 (6.5-8.0) g/dL Albumin 4.5 (3.5-5.0) g/dL Urine Color Yellow Urine Appearance Clear Urine pH 6.5 (5.0-9.0) Ur Specific [place] 1.025 (1.005-1.025) Urine Protein Trace (Neg-Trace) mg/dL Urine Glucose (UA) 100 H (Negative) mg/dL Urine Ketones Trace (Negative) mg/dL Urine Blood Large (3+) H (Negative) Urine Nitrite Negative (Negative) Ur Leukocyte Esterase Negative (Negative) Urine RBC >20 H (0-2) /HPF Urine WBC 0-5 (0-5) /HPF Ur Squamous Epith Cells 0-2 (0-2) /HPF Urine Bacteria None Seen (None Seen) Hyaline Casts 0-2 (0-2) /LPF Urine Opiates Screen POSITIVE H (Not Detect) Ur Buprenorphine Scrn Not Detected (Not Detect) ng/mL Ur Oxycodone Screen Not Detected (Not Detect) ng/mL Urine Methadone Screen Positive H (Not Detect) ng/mL Urine Fentanyl Screen POSITIVE H (Not Detect) Ur Barbiturates Screen Not Detected (Not Detect) Ur Phencyclidine Scrn Not Detected (Not Detect) Ur Amphetamines Screen Not Detected (Not Detect) U Benzodiazepines Scrn Not Detected (Not Detect) Urine Cocaine Screen Not Detected (Not Detect) U Marijuana (THC) Screen Not Detected (Not Detect) Ethyl Alcohol < 10 mg/dL Influenza Type A (PCR) NEGATIVE (Negative) Influenza Type B (PCR) NEGATIVE (Negative) RSV RNA Qual (PCR) NEGATIVE (Negative) SARS-CoV-2 RNA (RT-PCR) NEGATIVE (Negative) External Record Review External record reviewed: Outpatient record Social Determinants Patient?s care significantly limited by Social Determinants of Health including: Problems related to primary support group Discharge Plan Discharge Clinical Impression: Opioid use disorder Depression Qualifiers: Depression Type: unspecified Qualified Code(s): F32.A - Depression, unspecified Patient Disposition: Admitted As Inpatient Interventions: Davis-Suicide Risk Severity Scale Last Done: 10/30/24 15:25 Admission Worksheet (ED) Last Done: 10/31/24 13:14 Discharge Date/Time: 10/31/24 13:31
[2024-10-30 11:07] LABS: MANUAL DIFF FLAG NO
--- NOTE | 2024-10-30 11:08 | PC.NURSE ---
Report received, taken over care at this time.
[2024-10-30 11:10] LABS: Basophils Absolute Auto 0.1 X10*3/uL (0.0-0.2); Basophils Percent Auto 0.5 % (0-2); Hematocrit 38.7 % (42.0-52.0); Hemoglobin 14.2 g/dl (14.0-18.0); Imm Gran Abs Auto 0.01 X10*3/uL (0.00-0.03); Imm Gran Pct Auto 0.1 % (0.0-0.4); Lymphocytes Absolute Auto 2.6 X10*3/uL (1.2-4.9); Lymphocytes Percent Auto 27.3 % (20-40); Mean Corpuscular HGB Conc 36.7 g/dl (31.0-36.0); Mean Corpuscular Volume 84.5 fL (80.0-98.0); Mean Platelet Volume 10.4 fL (9.4-12.4); Monocytes Absolute Auto 0.6 X10*3/uL (0.1-1.2); Monocytes Percent Auto 6.6 % (2-11); Neutrophils Absolute Auto 6.2 x10*3/uL (2.0-8.3); Neutrophils Percent Auto 65.5 % (45-73); Platelet Count 207 X10*3/uL (160-400); Red Blood Count 4.58 X10*6/uL (4.60-5.80); White Blood Count 9.5 X10*3/uL (4.8-10.8)
[2024-10-30 11:24] LABS: Ethanol < 10 mg/dL
[2024-10-30 11:25] LABS: Alanine Aminotransferase 41 U/L (0-40); Albumin Level 4.5 g/dL (3.5-5.0); Alkaline Phosphatase 80 U/L (39-117); Anion Gap 13 (12-20); Aspartate Amino Transferase 32 U/L (5-37); Bilirubin Total 0.3 mg/dL (0.0-1.0); Blood Urea Nitrogen 21 mg/dL (9-16); Calcium 9.5 mg/dL (8.4-10.2); Carbon Dioxide 25 mmol/L (22-29); Chloride 105 mmol/L (96-108); Creatinine Clr Calc Pharmacy 86.7; Estimated Glomerular Filt Rate > 60; Glucose Random 98 mg/dL (60-115); Potassium 4.3 mmol/L (3.3-5.1); Sodium 139 mmol/L (135-145); Total Protein 7.4 g/dL (6.5-8.0)
[2024-10-30 11:31] LABS: Appearance Urine Clear; Color Urine Yellow; Glucose Urine UA 100 mg/dL (Negative); Leukocyte Esterase Urine Negative (Negative); Nitrite Urine Negative (Negative); PH 6.5 (5.0-9.0); Specific Gravity - Urine 1.025 (1.005-1.025); UMIC TRIGGER UACC YES; Urine Blood Large (3+) (Negative); Urine Ketones Trace mg/dL (Negative); Urine Protein Trace mg/dL (Neg-Trace)
[2024-10-30 11:34] LABS: Bacteria Urine None Seen (None Seen); Hyaline Casts Urine 0-2 /LPF (0-2); RBC Urine >20 /HPF (0-2); Squamous Epithelial Cell Urine 0-2 /HPF (0-2); WBC Urine 0-5 /HPF (0-5)
[2024-10-30 11:40] LABS: Amphetamine Screen Urine Not Detected (Not Detect); Barbiturates, Urine Not Detected (Not Detect); Benzodiazepines Screen Urine Not Detected (Not Detect); Buprenorphine Scr Not Detected (Not Detect); Cannabinoid Screen Urine Not Detected (Not Detect); Cocaine Screen Urine Not Detected (Not Detect); Fentanyl, urine POSITIVE (Not Detect); Methadone Screen, Urine Positive (Not Detect); Opiate Screen Urine POSITIVE (Not Detect); Oxycodone Screen Urine Not Detected (Not Detect); Phencyclidine Screen Urine Not Detected (Not Detect)
[2024-10-30 11:46] LABS: Influenza A PCR NEGATIVE (Negative); Influenza B PCR NEGATIVE (Negative); Resp Syncy Virus RNA Qual PCR NEGATIVE (Negative); SARS COV2 PCR INHOUSE NEGATIVE (Negative)
[2024-10-30 12:00] VITALS: BP 129/80; PULSE 92; RESP 19; TEMP 36.6; O2SAT 98
--- OUTSIDE RECORDS SUMMARY | 2024-10-30 12:35 | XMS_ITS | Clinical Summary ---
Author Organization [facility] Address [address] [place] [id number] Care Team Providers Care Visualization Developer Name Role Phone Unavailable Primary Care Provider Unavailabl e Source Comments PLEASE NOTE, if this patient is a minor, it may be UNLAWFUL to discuss sensitive information that is contained in these records (such as FAMILY PLANNING, MENTAL HEALTH or SUBSTANCE ABUSE) with the minor patient's parent or other person without the patient's specific authorization.[facility] Social History Tobacco Use Types Packs/Day Years Used Date Smoking Tobacco: Never Assessed Social Connections Answer Date Recorded Social Connections and Isolation 0 03/17/2019 Financial Resource Strain Answer Date R ecorded Financial Resource Strain 0 2018 Stress Answer Date Recorded Stress 0 03/17/2019 Physical Activity Answer Date Recorded Physical Activity 0 03/17/2019 Food Insecurity Answer Date Recorded Food 0 03/17/2019 Transportation Needs Answer Date Record ed Transportation 0 03/17/2019 Housing Stability Answer Date Recorded Housing 0 03/17/2019 Safety and Environment Answer Date Arnol rded Safety 0 03/17/2019 Utilities Answer Date Recorded Utilities 0 03/17/2019 Employment Answer Date Recorded Employment 0 03/17/2019 Sex and Gender Information Value Date Recorded Sex Assigned at Not on file Legal Sex Male 8:15 AM PDT Gender Identity Not on file Sexual Orientation Not on file Plan of Treatment Not on file Insurance [place] [address] [facility] NET DENTAL
--- OUTSIDE RECORDS SUMMARY | 2024-10-30 12:35 | XMS_ITS | Clinical Summary ---
Author Organization [facility] it Address [address] [place] [address] Care Team Providers Care Software Engineer Web Services Name Role Phone Lexie Ibarra MD Primary Care Provider Allergies Active Allergy Reactions Criticality Noted Date Comments Naproxen 11/11/2010 Other Reaction(s): OTHER DIZZINESS Active Problems Problem Noted Date Diagnosed Date History of opioid abuse 06/28/2023 Immunizations Name Administration Dates Next Due Tdap Tetanus diptheria acell ular pertussis (Boostrix; Adacel) 7yo and older 06/28/2023 Surgical History Surgery Date Site/Laterality Comments SHOULDER SURGERY PROCEDURE: HISTORICAL SHOULDER SURGERY Medical History Medical History Date Comments Genital herpes 10/12/2010 DX:Genital herpe s Family History Medical History Relation Name Comments No Known Problems Brother Other: Lupus Daughter No Known Problems Maternal Grandfather No Known Problems Maternal Grandmother No Known Problems Paternal Grandmother No Known Problems Sister 1 No Known Problems Sister 2 Relation Name Status Comments Brother Alive Daughter Alive Father (Age 58) Emphysema Maternal Grandfather Maternal Grandmother Mother Alive Healthy Paternal Grandfather Paternal Grandmother Sister 1 Alive Sister 2 Alive Social History Tobacco Use Types Packs/Day Years Used Date Smoking Tobacco: Every Day Cigarettes Alcohol Use Standard Drinks/Week Comments Not Currently 0 (1 standard drink = 0.6 oz pur e alcohol) Sex and Gender Information Value Date Recorded Sex Assigned at Not on file Legal Sex Male 9:48 AM EST Gender Identity Not on file Sexual Orientation Not on file Obstetrics History Last Filed Vital Signs Vital Sign Reading Time Taken Comments Blood Pressure 130/80 06/28/2023 10:30 AM EST Pulse 16 06/28/2023 10:30 AM EST Temperature - - Respiratory Rate - - Oxygen Saturation - - Inhaled Oxygen Concentration - - Weight 77.5 kg (170 lb 12.8 oz) 023 10:30 AM EST Height 157.5 cm (5' 2 ) 06/28/2023 10:3 0 AM EST Body Mass Index 31.24 06/28/2023 10:30 AM EST Plan of Treatment Health Maintenance Due Date Last Done Comments Hepatitis B Vaccines (1 of 3 - 19+ 3-dose series) 1991 Pneumococcal Vaccine: 50+ Ye ars (1 of 2 - PCV) 1991 Pneumococcal Vaccine: Pediat rics (0 to 5 Years) and At-Risk Patients (6 to 64 Years) (1 of 2 - PCV) 1991 Cholesterol Screening (Lipid Panel) 06/22/2022 Colorectal Cancer Screening: Colonoscopy 06/22/2022 Depression Screening 06/22/2022 HIV Screening 06/22/2022 Hepatitis C Screening 06/22/2022 Social Influencers of Health Screening 06/22/2022 Zoster Vaccines (1 of 2) 2022 COVID-19 Vaccine ( - 2023-2 5 season) 2024 Influenza Vaccine (#1) 2024 DTaP,Tdap,and Td Vaccines (2 - Td or Tdap) 06/28/2033 06/28/2023 HIB Vaccines Aged Out No longer eligi ble based on patient's age to complete this topic HPV Vaccines Aged Out No longer eligi ble based on patient's age to complete this topic Hepatitis A Vaccines Aged Out No long er eligible based on patient's age to complete this topic IPV Vaccines Aged Out No longer eligi ble based on patient's age to complete this topic MMR Vaccines Aged Out No longer eligi ble based on patient's age to complete this topic Meningococcal ACWY Vaccine Aged Out N o longer eligible based on patient's age to complete this topic Meningococcal B Vaccine Aged Out No l onger eligible based on patient's age to complete this topic RSV Immunization Patients Un jesse 20 months Aged Out No longer eligible b ased on patient's age to complete this topic Varicella Vaccines Aged Out No longer eligible based on patient's age to complete this topic Care Teams Software Engineer Web Services Relationship Specialty Start Date End Date Lexie Ibarra MD PCP - General 05/13/23
[2024-10-30 14:00] VITALS: BP 129/80; PULSE 92; RESP 19; TEMP 36.6; O2SAT 98
--- NOTE | 2024-10-30 15:00 | PC.NURSE ---
Assumed care of patient at 1445, patient is calm and cooperative, ambulating around BH pod, no apparent distress noted. Continue plan of care for recovery team kennedy
[2024-10-30 15:42] VITALS: BP 125/79; PULSE 80; RESP 15; TEMP 36.3; O2SAT 97
--- NOTE | 2024-10-30 17:44 | PC.NURSE ---
[facility] awaiting call back at this time
--- NOTE | 2024-10-30 18:10 | PC.NURSE ---
patient reports to this RN that he is hearing screaming in his ears and that there are GPS signals in my ears and they don't want me to talk or think, so when they hear me talking and thinking, they scream and let off alarms . Patient appears to be responding to internal stimuli at times as well
[2024-10-30] MEDS: OLANZapine 10 MG TABLET PO (18:24)
[2024-10-30] MEDS: LORazepam 1 MG TABLET PO (18:24)
--- NOTE | 2024-10-31 | ECG_ITS ---
Test Reason : medical clearance Blood Pressure : */* mmHG Vent. Rate : 71 BPM Atrial Rate : 71 BPM P-R Int : 162 ms QRS Dur : 76 ms QT Int : 432 ms P-R-T Axes : 70 -5 55 degrees QTcB Int : 469 ms Sinus rhythm with marked sinus arrhythmia Otherwise normal ECG When compared with ECG of 09-Dec-2023 14:00, T wave amplitude has decreased in Lateral leads Referred By: Venus Womack Electronically Signed By: Monster Dong
[2024-10-31 00:25] VITALS: BP 147/71; PULSE 57; RESP 16; TEMP 36.4; O2SAT 100
--- NOTE | 2024-10-31 05:55 | PC.NURSE ---
Patient slept through the night, no distress observed/reported, no behavior and safety concerns, disposition per care team is section-12 inpatient bed search, will continue to monitor
[2024-10-31 06:00] VITALS: BP 108/80; PULSE 74; RESP 16; TEMP 36.9; O2SAT 99
--- NOTE | 2024-10-31 07:01 | PC.NURSE ---
Assumed care of patient at 0645, patient appears to be in no apparent distress, ambulating with steady gait out of ED, speaking in clear full sentences, respirations even and unlabored. Continue plan of care for IPLOC
--- NOTE | 2024-10-31 08:06 | HE.PHANOTE ---
Olivia Cabello Pt receives 28mg from [facility]. Last dose given 10/30/2024 @0730.
--- NOTE | 2024-10-31 09:28 | PHA.MEDREC ---
Addendum entered by Rosa Singh RPh 10/31/24 09:30: Reviewed, claims from december 2023. Original Note: Pharmacy Consult ? Medication Reconciliation Pharmacy has reviewed the medication reconciliation done by nursing.
[2024-10-31] MEDS: methADONE HCl 20 MG/2 ML ORAL.CONC 28 MG PO (09:30)
[2024-10-31 13:30] VITALS: BP 127/75; PULSE 89; RESP 16; TEMP 36.4; O2SAT 97
--- NOTE | 2024-10-31 14:57 | P.HPPS_ITS ---
HPI Date of Service: 10/31/24 Chief Complaint: crisis Sources of Information: patient interviewed, chart reviewed and crisis/core team assessment reviewed HPI Subjective Notes: Lopez Warning and Conditional Voluntary Narrative: Patient is a 54-year-old male with history of schizophrenia and opiate use disorder who self presented to [facility] due to suicidal ideation and seeking detox from heroin secondary to life stressors and medication noncompliance. Per crisis report, patient self presented seeking detox from heroin; Patient also endorsed suicidal thoughts. Patient reports he has been off his medications for the past 3 months. He also relapsed on heroin due to increased auditory hallucinations. Patient reported his voices are torturing him. denies VH. Patient also presented with paranoid delusions believing people were tracking him. He reports stopping his medications due to feeling better. Patient does not currently have outpatient psychiatric providers. History of section 35. Utox positive for opiates, methadone and fentanyl. During admission assessment, patient presents alert and oriented x3. calm and cooperative. Patient reports feeling anxious; Patient stated, I came to the hospital because I want to stay here for few days and stay clean. I want to start over. I'm going to give myself all my will power. I want to go to therapy again . Patient reports he was able to maintain his sobriety for 6 months and relapsed a few weeks ago due to increased stress at work and pain from his job . Patient reports he does not have outpatient psychiatric providers but would like referrals. Patient denies SI/HI/VH/AH. Patient did not express any paranoid delusions and did not appear to be responding to internal stimuli during assessment. Patient is requesting to be restarted on his medication regimen which she was taking last year. Patient reports he is not interested in a referral to a substance abuse program and would like to return home after discharge. Past Psychiatric History: hx of psychiatric hospitalization. last being on M3 in 11/2023. outpt: [facility] clinic by [facility] Dr[facility] Montes. Currently does not have outpatient psychiatric providers. Denies hx of SA/SIB. Medical Evaluation Reviewed: Yes [facility] Medical History Unspecified psychosis Opiate use Family History: Denies Social History: Single. One daughter(28 y/o). High school diploma. attended trade school. 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 Substance History: Patient reports heroin use. Utox positive for opiates, methadone, fentanyl. Trauma History: denies Diagnostics Vital Signs (24Hr): Vital Signs - 24 hr 10/30/24 15:42 10/31/24 00:25 10/31/24 06:00 Temperature 97.3 F 97.6 F 98.5 F Pulse Rate 80 57 74 Respiratory Rate 15 16 16 Blood Pressure 125/79 147/71 H 108/80 Pulse Oximetry 97 100 99 Oxygen Delivery Method Room Air Room Air Room Air BMI result Body Mass Index 28.3 Labs 10/30/24 11:02 10/31/24 15:02 Labs: Laboratory Results - last 48 hr 10/30/24 10/30/24 11:02 11:21 WBC 9.5 RBC 4.58 L Hgb 14.2 Hct 38.7 L MCV 84.5 MCH 31.0 MCHC 36.7 H RDW 12.0 Plt Count 207 MPV 10.4 Immature Gran % (Auto) 0.1 Neut % (Auto) 65.5 Lymph % (Auto) 27.3 [place] % (Auto) 6.6 Eos % (Auto) 0.0 Baso % (Auto) 0.5 Lymph # (Auto) 2.6 [place] # (Auto) 0.6 Eos # (Auto) 0.0 Baso # (Auto) 0.1 Abs Immat Gran (auto) 0.01 Absolute Neuts (auto) 6.2 Absolute Nucleated RBC 0.000 Nucleated RBC % (auto) 0.0 Sodium 139 Potassium 4.3 Chloride 105 Carbon Dioxide 25 Anion Gap 13 BUN 21 H Creatinine 0.89 Estim Creat Clear Calc 86.7 Estimated GFR > 60 Random Glucose 98 Calcium 9.5 Total Bilirubin 0.3 AST 32 ALT 41 H Alkaline Phosphatase 80 Total Protein 7.4 Albumin 4.5 Urine Color Yellow Urine Appearance Clear Urine pH 6.5 Ur Specific [place] 1.025 Urine Protein Trace Urine Glucose (UA) 100 H Urine Ketones Trace Urine Blood Large (3+) H Urine Nitrite Negative Ur Leukocyte Esterase Negative Urine RBC >20 H Urine WBC 0-5 Ur Squamous Epith Cells 0-2 Urine Bacteria None Seen Hyaline Casts 0-2 Urine Opiates Screen POSITIVE H Ur Buprenorphine Scrn Not Detected Ur Oxycodone Screen Not Detected Urine Methadone Screen Positive H Urine Fentanyl Screen POSITIVE H Ur Barbiturates Screen Not Detected Ur Phencyclidine Scrn Not Detected Ur Amphetamines Screen Not Detected U Benzodiazepines Scrn Not Detected Urine Cocaine Screen Not Detected U Marijuana (THC) Screen Not Detected Ethyl Alcohol < 10 Influenza Type A (PCR) NEGATIVE Influenza Type B (PCR) NEGATIVE RSV RNA Qual (PCR) NEGATIVE SARS-CoV-2 RNA (RT-PCR) NEGATIVE Meds/Allergies Meds Home Medications ?Medication ?Instructions ?Recorded ?Confirmed ?Type methadone 10 mg/mL oral 28 mg PO DAILY 10/31/24 10/31/24 History concentrate (Methadose) Allergies Allergies Allergy/AdvReac Type Severity Reaction Status Date / Time No Known Allergies Allergy Verified 10/30/24 10:08 Mental Status Exam Mental Status Exam Narrative: Pt is alert and oriented; behavior is cooperative and calm; dressed in casual attire; mood is described as anxious ; eye contact appropriate; Speech is normal rate, volume and not pressured; thought process is organized and goal directed; Thought content is on tx; otherwise pertinent to relevant topics and without any delusional content, paranoid ideations or grandiosity; denies SI/HI/VH/AH. Assessment & Plan Assessment & Plan (1) Schizophrenia, paranoid: Status: Acute Code(s): F20.0 - Paranoid schizophrenia (2) Opioid use disorder: Status: Acute Code(s): F11.90 - Opioid use, unspecified, uncomplicated Plan Patient is a 54-year-old male with history of schizophrenia and opiate use disorder who self presented to [facility] due to suicidal ideation and seeking detox from heroin secondary to life stressors and medication noncompliance. Plan: CV 15 minute safety checks Obtain collateral Consult to addiction medicine for value stream coach Start: Clonidine 0.1mg PO BID Abilify 5mg PO daily Encourage groups Discharge planning Patient educated on: diagnosis and medication risk/benefits Reason for continued inpatient stay Substantial Risk for: med/psych decompensation Statement Statement: I have reviewed the history and physical and performed a pertinent examination on my patient. No changes have occurred unless specified. If the History and Physical was not performed prior to admission, the Hospitalist's service will be consulted for completing the admission physical. Time Spent With Patient Time: Total time managing care of this patient today _60___ minutes.
[2024-10-31 15:47] LABS: Alanine Aminotransferase 22 U/L (0-40); Albumin Level 4.1 g/dL (3.5-5.0); Anion Gap 13 (12-20); Aspartate Amino Transferase 22 U/L (5-37); Bilirubin Total 0.3 mg/dL (0.0-1.0); Blood Urea Nitrogen 21 mg/dL (9-16); Calcium 9.5 mg/dL (8.4-10.2); Carbon Dioxide 29 mmol/L (22-29); Chloride 102 mmol/L (96-108); Creatinine Clr Calc Pharmacy 70.1; Estimated Glomerular Filt Rate > 60; Glucose Random 100 mg/dL (60-115); Potassium 3.9 mmol/L (3.3-5.1); Sodium 140 mmol/L (135-145); Total Protein 6.9 g/dL (6.5-8.0)
[2024-10-31] MEDS: hydrOXYzine HCL 25 MG TABLET PO (16:09)
[2024-10-31] MEDS: OLANZapine 5 MG TABLET PO (16:09)
[2024-10-31] MEDS: ARIPiprazole 5 MG TABLET PO (16:21)
[2024-10-31 16:38] LABS: Alkaline Phosphatase 77 U/L (39-117)
[2024-10-31 17:16] VITALS: BMI 25.2
--- NOTE | 2024-10-31 17:49 | PC.ADMIT ---
Latisha is a 54 y/o male that was admitted to at 1334 from the Pod on CV for treatment of Opioid use d/o and unspec psychosis.? Precipitants of admission include erratic behavior, agitation and responding to internal stimuli.? Pt alert and oriented x3. Calm and cooperative with the admission process.? Mood is anxious which is congruent with affect.? Pt denied AVH although in the pod pt endorsed a ringing in ear for the past 3 months and? Pt denied AVH, but in the pod endorsed a ringing in his ear that has happened since he stopped his medications. Pt also stated in the pod to the RN that he has a ?gps tracker in his ear and people are following him with it?.? Thought process was linear and organized.? Pt denied SI or HI at this time although in the pod endorsed SI without a plan and thoughts of self harm. Pt told TW ?I just said those things so I would be admitted. I don?t actually have those thoughts.? Medication noncompliance for the past 3 months.? No recent weight gain or loss Pt had good eye contact and focus.? Tox Screen was positive for methadone, opiates and fentanyl. Pt reported last use was prior to admission and reported ?snorted a baggie or heroin .? Pt reported smoking ? a pack a day.? NKA.? Hx of previous IPLOC and detox treatment.? No hx of trauma.? Pt denied any physical complaints.? Pt was placed on 15 min checks for safety.? Skin check unremarkable.
[2024-10-31 20:00] VITALS: BP 132/67; PULSE 80; RESP 16; TEMP 36.4; O2SAT 98
[2024-10-31] MEDS: cloNIDine HCL 0.1 MG TABLET PO (20:36)
[2024-11-01 07:00] VITALS: BMI 25.6
[2024-11-01 07:42] VITALS: BP 122/73; PULSE 66; RESP 18; TEMP 36.3; O2SAT 100
[2024-11-01] MEDS: methADONE HCl 20 MG/2 ML ORAL.CONC 28 MG PO (07:57)
[2024-11-01 08:51] VITALS: BP 128/62
[2024-11-01] MEDS: cloNIDine HCL 0.1 MG TABLET PO ×2 (08:51→20:48)
[2024-11-01] MEDS: ARIPiprazole 5 MG TABLET PO (08:52)
[2024-11-01] MEDS: Nicotine Polacrilex Lozenge 2 MG LOZENGE BUCCAL (08:52)
[2024-11-01] MEDS: hydrOXYzine HCL 25 MG TABLET PO (08:52)
[2024-11-01] MEDS: Nicotine 21 MG PATCH.TD24 TRANSDERMA (08:52)
[2024-11-01 09:13] LABS: Cholesterol 197 mg/dL (<200); HDL Cholesterol 56 mg/dL (>40); LDL Cholesterol Calculated 104 mg/dL (<100); Triglycerides 186 mg/dL (<150)
[2024-11-01 09:14] LABS: Estimated Average Glucose 114 mg/dL; Hemoglobin A1C 137.3988 umol/L; Hemoglobin A1c % 5.6 % (<6.0)
--- NOTE | 2024-11-01 09:31 | P.PNPSI_ITS ---
Subjective Subjective Date of Service: 11/01/24 Reason For Visit: crisis Subjective Notes: 3 Day Interim History: Active on unit. Pt presents with paranoid delusions of being followed. Patient reports having some anxiety; he reports having concerns if someone is tracking me because I sometimes hear a voice telling me to not do anything wrong . Patient reports auditory hallucinations have stopped since I got to the hospital . denies withdrawal symptoms. He reports sleeping well last night. denies SI/HI/VH/AH. 3 day notice up on 11/06/24. Abilify increased to 10mg PO daily Medication Compliance: Yes Side effects from medications: No Mental Status Exam Mental Status Exam Narrative: Pt is alert and oriented; behavior is cooperative and calm; dressed in casual attire; mood is described as anxious ; eye contact appropriate; Speech is normal rate, volume and not pressured; thought process is organized; Thought content is on tx; paranoia about being followed; denies SI/HI/VH/AH. Diagnostics Vital Signs (24Hr): Vital Signs - 24 hr 10/31/24 13:30 10/31/24 20:00 11/01/24 07:42 Temperature 97.5 F 97.6 F 97.3 F Pulse Rate 89 80 66 Respiratory Rate 16 16 18 Blood Pressure 127/75 132/67 122/73 Pulse Oximetry 97 98 100 Oxygen Delivery Method Room Air Room Air Room Air 11/01/24 08:51 Temperature Pulse Rate Respiratory Rate Blood Pressure 128/62 Pulse Oximetry Oxygen Delivery Method BMI result Body Mass Index 25.2 Labs 10/30/24 11:02 10/31/24 15:02 Labs: Laboratory Results - last 48 hr 10/30/24 10/30/24 10/31/24 11:02 11:21 15:02 WBC 9.5 RBC 4.58 L Hgb 14.2 Hct 38.7 L MCV 84.5 MCH 31.0 MCHC 36.7 H RDW 12.0 Plt Count 207 MPV 10.4 Immature Gran % (Auto) 0.1 Neut % (Auto) 65.5 Lymph % (Auto) 27.3 [place] % (Auto) 6.6 Eos % (Auto) 0.0 Baso % (Auto) 0.5 Lymph # (Auto) 2.6 [place] # (Auto) 0.6 Eos # (Auto) 0.0 Baso # (Auto) 0.1 Abs Immat Gran (auto) 0.01 Absolute Neuts (auto) 6.2 Absolute Nucleated RBC 0.000 Nucleated RBC % (auto) 0.0 Sodium 139 140 Potassium 4.3 3.9 Chloride 105 102 Carbon Dioxide 25 29 Anion Gap 13 13 BUN 21 H 21 H Creatinine 0.89 1.10 Estim Creat Clear Calc 86.7 70.1 Estimated GFR > 60 > 60 Random Glucose 98 100 Estimat Average Glucose Hemoglobin A1c % Calcium 9.5 9.5 Total Bilirubin 0.3 0.3 AST 32 22 ALT 41 H 22 Alkaline Phosphatase 80 77 Total Protein 7.4 6.9 Albumin 4.5 4.1 Triglycerides Cholesterol LDL Cholesterol, Calc HDL Cholesterol Urine Color Yellow Urine Appearance Clear Urine pH 6.5 Ur Specific [place] 1.025 Urine Protein Trace Urine Glucose (UA) 100 H Urine Ketones Trace Urine Blood Large (3+) H Urine Nitrite Negative Ur Leukocyte Esterase Negative Urine RBC >20 H Urine WBC 0-5 Ur Squamous Epith Cells 0-2 Urine Bacteria None Seen Hyaline Casts 0-2 Urine Opiates Screen POSITIVE H Ur Buprenorphine Scrn Not Detected Ur Oxycodone Screen Not Detected Urine Methadone Screen Positive H Urine Fentanyl Screen POSITIVE H Ur Barbiturates Screen Not Detected Ur Phencyclidine Scrn Not Detected Ur Amphetamines Screen Not Detected U Benzodiazepines Scrn Not Detected Urine Cocaine Screen Not Detected U Marijuana (THC) Screen Not Detected Ethyl Alcohol < 10 Influenza Type A (PCR) NEGATIVE Influenza Type B (PCR) NEGATIVE RSV RNA Qual (PCR) NEGATIVE SARS-CoV-2 RNA (RT-PCR) NEGATIVE 11/01/24 07:53 WBC RBC Hgb Hct MCV MCH MCHC RDW Plt Count MPV Immature Gran % (Auto) Neut % (Auto) Lymph % (Auto) [place] % (Auto) Eos % (Auto) Baso % (Auto) Lymph # (Auto) [place] # (Auto) Eos # (Auto) Baso # (Auto) Abs Immat Gran (auto) Absolute Neuts (auto) Absolute Nucleated RBC Nucleated RBC % (auto) Sodium Potassium Chloride Carbon Dioxide Anion Gap BUN Creatinine Estim Creat Clear Calc Estimated GFR Random Glucose Estimat Average Glucose 114 Hemoglobin A1c % 5.6 Calcium Total Bilirubin AST ALT Alkaline Phosphatase Total Protein Albumin Triglycerides 186 H Cholesterol 197 LDL Cholesterol, Calc 104 H HDL Cholesterol 56 Urine Color Urine Appearance Urine pH Ur Specific [place] Urine Protein Urine Glucose (UA) Urine Ketones Urine Blood Urine Nitrite Ur Leukocyte Esterase Urine RBC Urine WBC Ur Squamous Epith Cells Urine Bacteria Hyaline Casts Urine Opiates Screen Ur Buprenorphine Scrn Ur Oxycodone Screen Urine Methadone Screen Urine Fentanyl Screen Ur Barbiturates Screen Ur Phencyclidine Scrn Ur Amphetamines Screen U Benzodiazepines Scrn Urine Cocaine Screen U Marijuana (THC) Screen Ethyl Alcohol Influenza Type A (PCR) Influenza Type B (PCR) RSV RNA Qual (PCR) SARS-CoV-2 RNA (RT-PCR) Medications Medications Current Medications Acetaminophen (Acetaminophen 325 Mg Tablet) 650 mg PO Q6H PRN PRN Reason: Headache/Pain, Scale 1-10 Al Hydroxide/Mg Hydroxide (Magnesium Hydrox/Alum Hydrox 30 Ml Oral.Susp) 30 ml PO Q6H PRN PRN Reason: Heartburn/Nausea Aripiprazole (Aripiprazole 5 Mg Tablet) 5 mg PO DAILY [facility] Last Admin: 11/01/24 08:52 Dose: 5 mg Clonidine HCl (Clonidine Hcl 0.1 Mg Tablet) 0.1 mg PO BID [facility]; Protocol Last Admin: 11/01/24 08:51 Dose: 0.1 mg Hydroxyzine HCl (Hydroxyzine Hcl 25 Mg Tablet) 25 mg PO Q6H PRN PRN Reason: mild anxiety Last Admin: 11/01/24 08:52 Dose: 25 mg Magnesium Hydroxide (Milk Of Magnesia 30 Ml Oral.Susp) 30 ml PO DAILY PRN PRN Reason: Constipation Methadone HCl (Methadone Hcl 20 Mg/2 Ml Oral.Conc) 28 mg PO DAILY [facility] Last Admin: 11/01/24 07:57 Dose: 28 mg Nicotine (Nicotine 21 Mg Patch.Td24) 21 mg TRANSDERMA DAILY [facility] Last Admin: 11/01/24 08:52 Dose: 21 mg Nicotine Polacrilex (Nicotine Polacrilex 2 Mg Gum) 4 mg BUCCAL Q2H PRN PRN Reason: Nicotine Cravings Nicotine Polacrilex (Nicotine Polacrilex Lozenge 2 Mg Lozenge) 2 mg BUCCAL Q1H PRN PRN Reason: Nicotine Cravings Last Admin: 11/01/24 08:52 Dose: 2 mg Olanzapine (Olanzapine 5 Mg Tablet) 5 mg PO Q4H PRN PRN Reason: agitation Last Admin: 10/31/24 16:09 Dose: 5 mg Trazodone HCl (Trazodone Hcl 50 Mg Tablet) 50 mg PO BEDTIME MRX1 PRN PRN Reason: Insomnia Allergies Allergies Allergy/AdvReac Type Severity Reaction Status Date / Time No Known Allergies Allergy Verified 10/30/24 10:08 Assessment & Plan Assessment & Plan (1) Schizophrenia, paranoid: Status: Acute Code(s): F20.0 - Paranoid schizophrenia (2) Opioid use disorder: Status: Acute Code(s): F11.90 - Opioid use, unspecified, uncomplicated Plan Patient is a 54-year-old male with history of schizophrenia and opiate use disorder who self presented to [facility] due to suicidal ideation and seeking detox from heroin secondary to life stressors and medication noncompliance. Plan: CV 15 minute safety checks Obtain collateral Consult to addiction medicine for aircraft launch and recovery technician Start: Clonidine 0.1mg PO BID Abilify 5mg PO daily Encourage groups Discharge planning 11/01: Active on unit. Pt presents with paranoid delusions of being followed. Patient reports having some anxiety; he reports having concerns if someone is tracking me because I sometimes hear a voice telling me to not do anything wrong . Patient reports auditory hallucinations have stopped since I got to the hospital . denies withdrawal symptoms. He reports sleeping well last night. denies SI/HI/VH/AH. 3 day notice up on 11/06/24. Abilify increased to 10mg PO daily Patient educated on: diagnosis and medication risk/benefits Reason for continued inpatient stay Substantial Risk for: med/psych decompensation Time Spent With Patient Time: Total time managing care of this patient today _20___ minutes.
--- NOTE | 2024-11-01 12:16 | PC.NURSE ---
Patient submitted 3 day note.
[2024-11-01 20:47] VITALS: BP 120/60; PULSE 75; RESP 16; TEMP 36.4; O2SAT 99
[2024-11-01 20:48] VITALS: BP 120/60
[2024-11-01] MEDS: traZODone HCL 50 MG TABLET PO (20:54)
[2024-11-01] MEDS: OLANZapine 5 MG TABLET PO (20:54)
[2024-11-02 07:35] VITALS: BP 108/59; PULSE 80; RESP 16; TEMP 36.4; O2SAT 99
[2024-11-02] MEDS: methADONE HCl 20 MG/2 ML ORAL.CONC 28 MG PO (07:57)
--- NOTE | 2024-11-02 08:16 | MHC.RECOVRN ---
Received Addiction Medicine consult for golf coach. Spoke with provider, pt requesting golf coach referral, not looking to meet with [facility] at this time. Discussed with SW, SW to place golf coach referral. Amara Larkin APRN, aware.
[2024-11-02] MEDS: cloNIDine HCL 0.1 MG TABLET PO ×2 (08:20→18:43)
[2024-11-02] MEDS: Nicotine 21 MG PATCH.TD24 TRANSDERMA (08:20)
[2024-11-02] MEDS: ARIPiprazole 10 MG TABLET PO (08:21)
[2024-11-02] MEDS: Nicotine Polacrilex Lozenge 2 MG LOZENGE BUCCAL ×3 (08:34→17:31)
[2024-11-02] MEDS: Acetaminophen 325 MG TABLET 650 MG PO (12:25)
--- NOTE | 2024-11-02 14:21 | HO.PSYCHPN ---
Subjective Subjective Date of Service: 11/02/24 Reason For Visit: crisis Interim History: states he is just here bcse he wanted to stayt clean for three days and then discharge ot his sister's house. he denies AH, stating he only said that to be sure he got a bed. asking to D/C today, which was declined. 3-day up tuesday, pt informed he would be leaving tuesday or tuesday. Mental Status Exam Mental Status Exam Narrative: Pt is alert and oriented; behavior is cooperative and calm; dressed in casual attire; mood is described as anxious ; eye contact appropriate; Speech is normal rate, volume and not pressured; thought process is organized; Thought content is on tx; denies AH, indicates he malingered the Sx previously. no SI/HI/VH expressed. Diagnostics Vital Signs (24Hr): Vital Signs - 24 hr 11/01/24 20:47 11/01/24 20:48 11/02/24 07:35 Temperature 97.6 F 97.5 F Pulse Rate 75 80 Respiratory Rate 16 16 Blood Pressure 120/60 120/60 108/59 L Pulse Oximetry 99 99 Oxygen Delivery Method Room Air Room Air BMI result Body Mass Index 25.6 Labs 10/30/24 11:02 10/31/24 15:02 Labs: Laboratory Results - last 48 hr 10/31/24 11/01/24 15:02 07:53 Sodium 140 Potassium 3.9 Chloride 102 Carbon Dioxide 29 Anion Gap 13 BUN 21 H Creatinine 1.10 Estim Creat Clear Calc 70.1 Estimated GFR > 60 Random Glucose 100 Estimat Average Glucose 114 Hemoglobin A1c % 5.6 Calcium 9.5 Total Bilirubin 0.3 AST 22 ALT 22 Alkaline Phosphatase 77 Total Protein 6.9 Albumin 4.1 Triglycerides 186 H Cholesterol 197 LDL Cholesterol, Calc 104 H HDL Cholesterol 56 Medications Medications Current Medications Acetaminophen (Acetaminophen 325 Mg Tablet) 650 mg PO Q6H PRN PRN Reason: Headache/Pain, Scale 1-10 Last Admin: 11/02/24 12:25 Dose: 650 mg Al Hydroxide/Mg Hydroxide (Magnesium Hydrox/Alum Hydrox 30 Ml Oral.Susp) 30 ml PO Q6H PRN PRN Reason: Heartburn/Nausea Aripiprazole (Aripiprazole 10 Mg Tablet) 10 mg PO DAILY [facility] Last Admin: 11/02/24 08:21 Dose: 10 mg Clonidine HCl (Clonidine Hcl 0.1 Mg Tablet) 0.1 mg PO BID [facility]; Protocol Last Admin: 11/02/24 08:20 Dose: 0.1 mg Hydroxyzine HCl (Hydroxyzine Hcl 25 Mg Tablet) 25 mg PO Q6H PRN PRN Reason: mild anxiety Last Admin: 11/01/24 08:52 Dose: 25 mg Magnesium Hydroxide (Milk Of Magnesia 30 Ml Oral.Susp) 30 ml PO DAILY PRN PRN Reason: Constipation Methadone HCl (Methadone Hcl 20 Mg/2 Ml Oral.Conc) 28 mg PO DAILY [facility] Last Admin: 11/02/24 07:57 Dose: 28 mg Nicotine (Nicotine 21 Mg Patch.Td24) 21 mg TRANSDERMA DAILY [facility] Last Admin: 11/02/24 08:20 Dose: 21 mg Nicotine Polacrilex (Nicotine Polacrilex 2 Mg Gum) 4 mg BUCCAL Q2H PRN PRN Reason: Nicotine Cravings Nicotine Polacrilex (Nicotine Polacrilex Lozenge 2 Mg Lozenge) 2 mg BUCCAL Q1H PRN PRN Reason: Nicotine Cravings Last Admin: 11/02/24 10:59 Dose: 2 mg Olanzapine (Olanzapine 5 Mg Tablet) 5 mg PO Q4H PRN PRN Reason: agitation Last Admin: 11/01/24 20:54 Dose: 5 mg Trazodone HCl (Trazodone Hcl 50 Mg Tablet) 50 mg PO BEDTIME MRX1 PRN PRN Reason: Insomnia Last Admin: 11/01/24 20:54 Dose: 50 mg Allergies Allergies Allergy/AdvReac Type Severity Reaction Status Date / Time No Known Allergies Allergy Verified 10/30/24 10:08 Assessment & Plan Assessment & Plan (1) Malingering: Status: Acute Code(s): Z76.5 - Malingerer [conscious simulation] (2) Opioid use disorder: Status: Acute Code(s): F11.90 - Opioid use, unspecified, uncomplicated Plan Patient is a 54-year-old male with history of schizophrenia and opiate use disorder who self presented to [facility] due to suicidal ideation and seeking detox from heroin secondary to life stressors and medication noncompliance. Plan: CV 15 minute safety checks Obtain collateral Consult to addiction medicine for coach builder Start: Clonidine 0.1mg PO BID Abilify 5mg PO daily Encourage groups Discharge planning 11/01: Active on unit. Pt presents with paranoid delusions of being followed. Patient reports having some anxiety; he reports having concerns if someone is tracking me because I sometimes hear a voice telling me to not do anything wrong . Patient reports auditory hallucinations have stopped since I got to the hospital . denies withdrawal symptoms. He reports sleeping well last night. denies SI/HI/VH/AH. 3 day notice up on 11/06/24. Abilify increased to 10mg PO daily. 11/02: [facility]. asking for DC, which is declined. continue current mgmt. Reason for continued inpatient stay Substantial Risk for: inability to function Time Spent With Patient Time: Total time managing care of this patient today __25__ minutes.
[2024-11-02] MEDS: hydrOXYzine HCL 25 MG TABLET PO (15:19)
[2024-11-02 18:43] VITALS: BP 96/60
[2024-11-02] MEDS: traZODone HCL 50 MG TABLET PO (18:43)
[2024-11-02] MEDS: OLANZapine 5 MG TABLET PO (18:45)
[2024-11-02 20:00] VITALS: RESP 16
[2024-11-03 07:15] VITALS: BP 123/66; PULSE 63; RESP 16; TEMP 36.4; O2SAT 100
[2024-11-03] MEDS: methADONE HCl 20 MG/2 ML ORAL.CONC 28 MG PO (08:02)
[2024-11-03] MEDS: Nicotine 21 MG PATCH.TD24 TRANSDERMA (09:21)
[2024-11-03] MEDS: cloNIDine HCL 0.1 MG TABLET PO ×2 (09:23→17:15)
[2024-11-03] MEDS: OLANZapine 5 MG TABLET PO (14:25)
[2024-11-03] MEDS: Nicotine Polacrilex Lozenge 2 MG LOZENGE BUCCAL (16:00)
--- NOTE | 2024-11-03 17:58 | P.PNPSI_ITS ---
Subjective Subjective Date of Service: 11/03/24 Reason For Visit: crisis Interim History: no complaints or requests. reports he is doing really good. per staff, took meds early last night and slept through the night. Mental Status Exam Mental Status Exam Narrative: Pt is alert and oriented; behavior is cooperative and calm; dressed in casual attire; mood is described as really good; eye contact appropriate; Speech is normal rate, volume and not pressured; thought process is organized; Thought content is on discharge; no SI/HI/AVH expressed. Diagnostics Vital Signs (24Hr): Vital Signs - 24 hr 11/02/24 18:43 11/02/24 20:00 11/03/24 07:15 Temperature 97.5 F Pulse Rate 63 Respiratory Rate 16 16 Blood Pressure 96/60 123/66 Pulse Oximetry 100 Oxygen Delivery Method Room Air BMI result Body Mass Index 25.6 Labs 10/30/24 11:02 10/31/24 15:02 Medications Medications Current Medications Acetaminophen (Acetaminophen 325 Mg Tablet) 650 mg PO Q6H PRN PRN Reason: Headache/Pain, Scale 1-10 Last Admin: 11/02/24 12:25 Dose: 650 mg Al Hydroxide/Mg Hydroxide (Magnesium Hydrox/Alum Hydrox 30 Ml Oral.Susp) 30 ml PO Q6H PRN PRN Reason: Heartburn/Nausea Aripiprazole (Aripiprazole 10 Mg Tablet) 10 mg PO DAILY [facility] Last Admin: 11/03/24 09:24 Dose: Not Given Clonidine HCl (Clonidine Hcl 0.1 Mg Tablet) 0.1 mg PO BID@0900,1800 [facility]; Protocol Last Admin: 11/03/24 17:15 Dose: 0.1 mg Hydroxyzine HCl (Hydroxyzine Hcl 25 Mg Tablet) 25 mg PO Q6H PRN PRN Reason: mild anxiety Last Admin: 11/02/24 15:19 Dose: 25 mg Magnesium Hydroxide (Milk Of Magnesia 30 Ml Oral.Susp) 30 ml PO DAILY PRN PRN Reason: Constipation Methadone HCl (Methadone Hcl 20 Mg/2 Ml Oral.Conc) 28 mg PO DAILY [facility] Last Admin: 11/03/24 08:02 Dose: 28 mg Nicotine (Nicotine 21 Mg Patch.Td24) 21 mg TRANSDERMA DAILY [facility] Last Admin: 11/03/24 09:21 Dose: 21 mg Nicotine Polacrilex (Nicotine Polacrilex 2 Mg Gum) 4 mg BUCCAL Q2H PRN PRN Reason: Nicotine Cravings Nicotine Polacrilex (Nicotine Polacrilex Lozenge 2 Mg Lozenge) 2 mg BUCCAL Q1H PRN PRN Reason: Nicotine Cravings Last Admin: 11/03/24 16:00 Dose: 2 mg Olanzapine (Olanzapine 5 Mg Tablet) 5 mg PO Q4H PRN PRN Reason: agitation Last Admin: 11/03/24 14:25 Dose: 5 mg Trazodone HCl (Trazodone Hcl 50 Mg Tablet) 50 mg PO BEDTIME MRX1 PRN PRN Reason: Insomnia Last Admin: 11/02/24 18:43 Dose: 50 mg Allergies Allergies Allergy/AdvReac Type Severity Reaction Status Date / Time No Known Allergies Allergy Verified 10/30/24 10:08 Assessment & Plan Assessment & Plan (1) Malingering: Status: Acute Code(s): Z76.5 - Malingerer [conscious simulation] (2) Opioid use disorder: Status: Acute Code(s): F11.90 - Opioid use, unspecified, uncomplicated Plan Patient is a 54-year-old male with history of schizophrenia and opiate use disorder who self [place] [facility] [place] due to suicidal ideation and seeking detox from heroin secondary to life stressors and medication noncompliance. Plan: CV 15 minute safety checks Obtain collateral Consult to addiction medicine for cost recovery technician Start: Clonidine 0.1mg PO BID Abilify 5mg PO daily [facility] groups Discharge planning 11/01: Active on unit. Pt presents with paranoid delusions of being followed. Patient reports having some anxiety; he reports having concerns if someone is tracking me because I sometimes hear a voice telling me to not do anything wrong . Patient reports auditory hallucinations have stopped since I got to the hospital . denies withdrawal symptoms. He reports sleeping well last night. denies SI/HI/VH/AH. 3 day notice up on 11/06/24. Abilify increased to 10mg PO daily. 11/02: [facility] to [facility] to make sure [he] got a bed. asking for DC, which is declined. continue current mgmt. 11/03: doing really good. slept well last night. continue current mgmt. Reason for continued inpatient stay Substantial Risk for: rapid decompensation Time Spent With Patient Time: Total time managing care of this patient today ____ minutes.
[2024-11-03 19:07] VITALS: BP 98/63; PULSE 68; RESP 16; TEMP 36.6; O2SAT 97
[2024-11-04] MEDS: OLANZapine 5 MG TABLET PO ×2 (02:36→13:36)
[2024-11-04] MEDS: Acetaminophen 325 MG TABLET 650 MG PO (02:36)
[2024-11-04] MEDS: hydrOXYzine HCL 25 MG TABLET PO (05:27)
[2024-11-04 07:46] VITALS: BP 119/65; PULSE 66; RESP 16; TEMP 36.4; O2SAT 99
[2024-11-04] MEDS: methADONE HCl 20 MG/2 ML ORAL.CONC 28 MG PO (07:56)
[2024-11-04 08:32] VITALS: BP 119/65
[2024-11-04] MEDS: cloNIDine HCL 0.1 MG TABLET PO ×2 (08:32→17:48)
[2024-11-04] MEDS: ARIPiprazole 10 MG TABLET PO (08:32)
[2024-11-04] MEDS: Nicotine Polacrilex Lozenge 2 MG LOZENGE BUCCAL ×3 (09:11→17:50)
[2024-11-04] MEDS: Nicotine 21 MG PATCH.TD24 TRANSDERMA (09:13)
[2024-11-04 19:28] VITALS: BP 114/62; PULSE 74; RESP 18; TEMP 36.2; O2SAT 96
--- NOTE | 2024-11-04 21:26 | HO.PSYCHPN ---
Subjective Subjective Date of Service: 11/04/24 Reason For Visit: crisis Interim History: no change. per staff, refusing abilify bcse he doesn't need it. took some zyprexa for anxiety, however, and also later for sleep. slept about 7 hours. Mental Status Exam Mental Status Exam Narrative: Pt is alert and oriented; behavior is cooperative and calm; dressed in casual attire; mood is described as not bad. same; eye contact appropriate; Speech is normal rate, volume and not pressured; thought process is organized; Thought content is on discharge; no SI/HI/AVH expressed. Diagnostics Vital Signs (24Hr): Vital Signs - 24 hr 11/04/24 07:46 11/04/24 08:32 11/04/24 19:28 Temperature 97.5 F 97.1 F Pulse Rate 66 74 Respiratory Rate 16 18 Blood Pressure 119/65 119/65 114/62 Pulse Oximetry 99 96 Oxygen Delivery Method Room Air Room Air BMI result Body Mass Index 25.6 Labs 10/30/24 11:02 10/31/24 15:02 Medications Medications Current Medications Acetaminophen (Acetaminophen 325 Mg Tablet) 650 mg PO Q6H PRN PRN Reason: Headache/Pain, Scale 1-10 Last Admin: 11/04/24 02:36 Dose: 650 mg Al Hydroxide/Mg Hydroxide (Magnesium Hydrox/Alum Hydrox 30 Ml Oral.Susp) 30 ml PO Q6H PRN PRN Reason: Heartburn/Nausea Aripiprazole (Aripiprazole 10 Mg Tablet) 10 mg PO DAILY [facility] Last Admin: 11/04/24 08:32 Dose: 10 mg Clonidine HCl (Clonidine Hcl 0.1 Mg Tablet) 0.1 mg PO BID@0900,1800 [facility]; Protocol Last Admin: 11/04/24 17:48 Dose: 0.1 mg Hydroxyzine HCl (Hydroxyzine Hcl 25 Mg Tablet) 25 mg PO Q6H PRN PRN Reason: mild anxiety Last Admin: 11/04/24 05:27 Dose: 25 mg Magnesium Hydroxide (Milk Of Magnesia 30 Ml Oral.Susp) 30 ml PO DAILY PRN PRN Reason: Constipation Methadone HCl (Methadone Hcl 20 Mg/2 Ml Oral.Conc) 28 mg PO DAILY@0800 [facility] Last Admin: 11/04/24 07:56 Dose: 28 mg Nicotine (Nicotine 21 Mg Patch.Td24) 21 mg TRANSDERMA DAILY [facility] Last Admin: 11/04/24 09:13 Dose: 21 mg Nicotine Polacrilex (Nicotine Polacrilex 2 Mg Gum) 4 mg BUCCAL Q2H PRN PRN Reason: Nicotine Cravings Nicotine Polacrilex (Nicotine Polacrilex Lozenge 2 Mg Lozenge) 2 mg BUCCAL Q1H PRN PRN Reason: Nicotine Cravings Last Admin: 11/04/24 17:50 Dose: 2 mg Olanzapine (Olanzapine 5 Mg Tablet) 5 mg PO Q4H PRN PRN Reason: agitation Last Admin: 11/04/24 13:36 Dose: 5 mg Trazodone HCl (Trazodone Hcl 50 Mg Tablet) 50 mg PO BEDTIME MRX1 PRN PRN Reason: Insomnia Last Admin: 11/02/24 18:43 Dose: 50 mg Allergies Allergies Allergy/AdvReac Type Severity Reaction Status Date / Time No Known Allergies Allergy Verified 10/30/24 10:08 Assessment & Plan Assessment & Plan (1) Malingering: Status: Acute Code(s): Z76.5 - Malingerer [conscious simulation] (2) Opioid use disorder: Status: Acute Code(s): F11.90 - Opioid use, unspecified, uncomplicated Plan Patient is a 54-year-old male with history of schizophrenia and opiate use disorder who self presented to [facility] [place] [facility] due to suicidal ideation and seeking detox from heroin secondary to life stressors and medication noncompliance. Plan: CV 15 minute safety checks Obtain collateral Consult to addiction medicine for speech coach Start: Clonidine 0.1mg PO BID Abilify 5mg PO daily [facility] groups Discharge planning 11/01: Active on unit. Pt presents with paranoid delusions of being followed. Patient reports having some anxiety; he reports having concerns if someone is tracking me because I sometimes hear a voice telling me to not do anything wrong . Patient reports auditory hallucinations have stopped since I got to the hospital . denies withdrawal symptoms. He reports sleeping well last night. denies SI/HI/VH/AH. 3 day notice up on 11/06/24. Abilify increased to 10mg PO daily. 11/02: admits to [facility] to make sure [he] got a bed. asking for DC, which is declined. continue current mgmt. 11/03: doing really good. slept well last night. continue current mgmt. 11/04: no change in presentation or mgmt. Reason for continued inpatient stay Substantial Risk for: stable for discharge Time Spent With Patient Time: Total time managing care of this patient today ____ minutes.
[2024-11-05] MEDS: hydrOXYzine HCL 25 MG TABLET PO (03:25)
[2024-11-05] MEDS: Acetaminophen 325 MG TABLET 650 MG PO (03:25)
[2024-11-05] MEDS: OLANZapine 5 MG TABLET PO (03:26)
[2024-11-05 07:15] VITALS: BP 119/64; PULSE 67; RESP 14; TEMP 36.4; O2SAT 99
[2024-11-05] MEDS: methADONE HCl 20 MG/2 ML ORAL.CONC 28 MG PO (07:50)
[2024-11-05] MEDS: Nicotine 21 MG PATCH.TD24 TRANSDERMA (08:14)
[2024-11-05 08:15] VITALS: BP 119/64
[2024-11-05] MEDS: cloNIDine HCL 0.1 MG TABLET PO (08:15)
[2024-11-05] MEDS: ARIPiprazole 10 MG TABLET PO (08:15)
--- NOTE | 2024-11-05 09:41 | PM.PSYDC ---
DS: Providers Provider Date of Service: 11/05/24 Date of admission: 10/31/24 12:01 Date of discharge: 11/05/24 Primary care physician: Unknown Physician Admitting clinician: Lia Johnson Attending physician on admission: Carlos Morales Consults: 10/31/24 17:14 Addiction Medicine Provider Routine Consulting Provider: Addiction Covering Reason for consultation: recovery engineer Attending physician on discharge: Carlos Morales Discharging clinician: Lia Johnson DS: Diagnosis Discharge Diagnosis (1) Malingering: Status: Acute (2) Opioid use disorder: Status: Acute DS: Medications Discharge Medications Home Medications: Home Medications ?Medication ?Instructions ?Recorded ?Confirmed methadone 10 mg/mL oral 28 mg PO DAILY 10/31/24 10/31/24 concentrate (Methadose) Mental Status Exam Mental Status Exam Narrative: Pt is alert and oriented; behavior is cooperative and calm; dressed in casual attire; mood is described as good ; eye contact appropriate; Speech is normal rate, volume and not pressured; thought process is organized; Thought content is on discharge; denies SI/HI/VH/AH. Data Data Completed and Pending Completed studies during hospitalization [Text1]: 10/30/24 10/30/24 10/31/24 11:02 11:21 15:02 WBC 9.5 RBC 4.58 L Hgb 14.2 Hct 38.7 L MCV 84.5 MCH 31.0 MCHC 36.7 H RDW 12.0 Plt Count 207 MPV 10.4 Immature Gran % (Auto) 0.1 Neut % (Auto) 65.5 Lymph % (Auto) 27.3 [place] % (Auto) 6.6 Eos % (Auto) 0.0 Baso % (Auto) 0.5 Lymph # (Auto) 2.6 [place] # (Auto) 0.6 Eos # (Auto) 0.0 Baso # (Auto) 0.1 Abs Immat Gran (auto) 0.01 Absolute Neuts (auto) 6.2 Absolute Nucleated RBC 0.000 Nucleated RBC % (auto) 0.0 Sodium 139 140 Potassium 4.3 3.9 Chloride 105 102 Carbon Dioxide 25 29 Anion Gap 13 13 BUN 21 H 21 H Creatinine 0.89 1.10 Estim Creat Clear Calc 86.7 70.1 Estimated GFR > 60 > 60 Random Glucose 98 100 Estimat Average Glucose Hemoglobin A1c % Calcium 9.5 9.5 Total Bilirubin 0.3 0.3 AST 32 22 ALT 41 H 22 Alkaline Phosphatase 80 77 Total Protein 7.4 6.9 Albumin 4.5 4.1 Triglycerides Cholesterol LDL Cholesterol, Calc HDL Cholesterol Urine Color Yellow Urine Appearance Clear Urine pH 6.5 Ur Specific [place] 1.025 Urine Protein Trace Urine Glucose (UA) 100 H Urine Ketones Trace Urine Blood Large (3+) H Urine Nitrite Negative Ur Leukocyte Esterase Negative Urine RBC >20 H Urine WBC 0-5 Ur Squamous Epith Cells 0-2 Urine Bacteria None Seen Hyaline Casts 0-2 Urine Opiates Screen POSITIVE H Ur Buprenorphine Scrn Not Detected Ur Oxycodone Screen Not Detected Urine Methadone Screen Positive H Urine Fentanyl Screen POSITIVE H Ur Barbiturates Screen Not Detected Ur Phencyclidine Scrn Not Detected Ur Amphetamines Screen Not Detected U Benzodiazepines Scrn Not Detected Urine Cocaine Screen Not Detected U Marijuana (THC) Screen Not Detected Ethyl Alcohol < 10 Influenza Type A (PCR) NEGATIVE Influenza Type B (PCR) NEGATIVE RSV RNA Qual (PCR) NEGATIVE SARS-CoV-2 RNA (RT-PCR) NEGATIVE 11/01/24 07:53 WBC RBC Hgb Hct MCV MCH MCHC RDW Plt Count MPV Immature Gran % (Auto) Neut % (Auto) Lymph % (Auto) [place] % (Auto) Eos % (Auto) Baso % (Auto) Lymph # (Auto) [place] # (Auto) Eos # (Auto) Baso # (Auto) Abs Immat Gran (auto) Absolute Neuts (auto) Absolute Nucleated RBC Nucleated RBC % (auto) Sodium Potassium Chloride Carbon Dioxide Anion Gap BUN Creatinine Estim Creat Clear Calc Estimated GFR Random Glucose Estimat Average Glucose 114 Hemoglobin A1c % 5.6 Calcium Total Bilirubin AST ALT Alkaline Phosphatase Total Protein Albumin Triglycerides 186 H Cholesterol 197 LDL Cholesterol, Calc 104 H HDL Cholesterol 56 Urine Color Urine Appearance Urine pH Ur Specific [place] Urine Protein Urine Glucose (UA) Urine Ketones Urine Blood Urine Nitrite Ur Leukocyte Esterase Urine RBC Urine WBC Ur Squamous Epith Cells Urine Bacteria Hyaline Casts Urine Opiates Screen Ur Buprenorphine Scrn Ur Oxycodone Screen Urine Methadone Screen Urine Fentanyl Screen Ur Barbiturates Screen Ur Phencyclidine Scrn Ur Amphetamines Screen U Benzodiazepines Scrn Urine Cocaine Screen U Marijuana (THC) Screen Ethyl Alcohol Influenza Type A (PCR) Influenza Type B (PCR) RSV RNA Qual (PCR) SARS-CoV-2 RNA (RT-PCR) DS: Summary Hospital Course Hospital Course: Patient is a 54-year-old male with history of schizophrenia and opiate use disorder who self presented to [facility] [place] [facility] due to suicidal ideation and seeking detox from heroin secondary to life stressors and medication noncompliance. Per crisis report, patient self presented seeking detox from heroin; Patient also endorsed suicidal thoughts. Patient reports he has been off his medications for the past 3 months. He also relapsed on heroin due to increased auditory hallucinations. Patient reported his voices are torturing him. denies VH. Patient also presented with paranoid delusions believing people were tracking him. He reports stopping his medications due to feeling better. Patient does not currently have outpatient psychiatric providers. History of section 35. Utox positive for opiates, methadone and fentanyl. During admission assessment, patient presents alert and oriented x3. calm and cooperative. Patient reports feeling anxious; Patient stated, I came to the hospital because I want to stay here for few days and stay clean. I want to start over. I'm going to give myself all my will power. I want to go to therapy again . Patient reports he was able to maintain his sobriety for 6 months and relapsed a few weeks ago due to increased stress at work and pain from his job . Patient reports he does not have outpatient psychiatric providers but would like referrals. Patient denies SI/HI/VH/AH. Patient did not express any paranoid delusions and did not appear to be responding to internal stimuli during assessment. Patient is requesting to be restarted on his medication regimen which she was taking last year. Patient reports he is not interested in a referral to a substance abuse program and would like to return home after discharge. Plan: CV 15 minute safety checks Obtain collateral Consult to addiction medicine for recovery engineer Start: Clonidine 0.1mg PO BID Abilify 5mg PO daily Encourage groups Discharge planning 11/01: Active on unit. Pt presents with paranoid delusions of being followed. Patient reports having some anxiety; he reports having concerns if someone is tracking me because I sometimes hear a voice telling me to not do anything wrong . Patient reports auditory hallucinations have stopped since I got to the hospital . denies withdrawal symptoms. He reports sleeping well last night. denies SI/HI/VH/AH. 3 day notice up on 11/06/24. Abilify increased to 10mg PO daily. 11/02: admits to [facility] to make sure [he] got a bed. asking for DC, which is declined. continue current mgmt. 11/03: doing really good. slept well last night. continue current mgmt. 11/04: no change in presentation or mgmt. 11/05: Patient reports feeling good ; denies SI/HI/VH/AH. Pt reports he plans on following up with his outpatient providers. Status at Discharge Cognitive/behavioral status at discharge: Patient has insight and demonstrates good judgment in terms of wanting to pursue treatment. Patient has a safety plan that includes presenting to the closest ER or calling 911 if feeling unsafe. Functional status at discharge: independent ambulation Overall status at discharge: patient is back to baseline Time Spent with Patient Time attestation: Total time managing care of this patient today _20___ minutes. Time spent: Less than 30 minutes Discharge Plan Discharge Anticipated Discharge Date/Time: 11/05/24 11:00 Patient Disposition: Home, Self-Care Discharge Diagnosis: Schizophrenia, opioid use d/o Referrals: [facility] [Provider Group] - 1 Week (11-05-24 [facility] was added to patients chart. Please call [phone] to schedule your follow up appt within 7-10 days of discharge.) Discharge Medications: New clonidine HCl 0.1 mg Tablet 0.1 mg PO BID@0900,1800 30 Days Qty: 60 0RF Protocol: Hold for SBP< HOLD for SBP < : 90 aripiprazole 10 mg Tablet 10 mg PO DAILY 30 Days Qty: 30 0RF Continued methadone [Methadose] 10 mg/mL concentrate 28 mg PO DAILY Rx Instructions: Partial Fill upon patient request. Discharge Orders: Discharge Order (Routine); Ordered 11/05/24 Ordered By: Lia Johnson Diet: Regular diet Activity on Discharge: As tolerated Stand Alone Forms: Patient Portal Discharge page, Community Support Print Language: Swedish Care Plan Goals: Maintain mood and safe behaviors Take medications as prescribed Continue to pursue sobriety Practice coping skills Continue with outpatient providers and reach out to them as needed Health Concerns: Mood stability and behaviors Sobriety Plan of Treatment: Follow up with your PCP, psychiatric provider and other outpatient providers regarding above concerns Take medications as prescribed Assessment: Patient has insight and demonstrates good judgment in terms of wanting to pursue treatment. Patient has a safety plan that includes presenting to the closest ER or calling 911 if feeling unsafe. Discharge Date/Time: 11/05/24 10:57
[2024-11-05] MEDS: Naloxone HCl Nasal TAKE HOME 4 MG SPRAY 8 MG NOSTRILALT (10:20)
== END 2024-11-05 10:57 | disposition home or self-care (01) | DRG 750 ==
LOC: HO.ED 14:46 → HO.PADLT16 10-31 12:18
PROVIDERS: Registered Nurse Emergency; Admitting Provider Registered Nurse; Emergency Provider Emergency Medicine; Responsible Provider Registered Nurse; Visit Provider Psychiatry & Neurology Psychiatry
DX: F20.0 Paranoid schizophrenia (principal); R45.851 Suicidal ideations; Z91.148 Patient's other noncompliance with medication regimen for other reason; F11.20 Opioid dependence, uncomplicated; Z76.5 Malingerer [conscious simulation]; F17.210 Nicotine dependence, cigarettes, uncomplicated; Z71.6 Tobacco abuse counseling; Z20.822 Contact with and (suspected) exposure to COVID-19; Z79.899 Other long term (current) drug therapy
CPT/HCPCS: 0241U; 36415; 80053; 80061; 80307; 81001; 83036; 85025; 93005; 99285; S9485

== ENCOUNTER → 2024-10-31 08:21 | Outpatient (BNV) | payer BC, SELFPAY | PROVIDERS: Admitting Provider Registered Nurse; Emergency Provider Emergency Medicine; Visit Provider Internal Medicine Cardiovascular Disease | DX: Z13.6 Encounter for screening for cardiovascular disorders (principal) | CPT/HCPCS: 93010 ==

== ENCOUNTER → 2024-10-31 12:01 | Outpatient (BNV) | payer BC, SELFPAY | PROVIDERS: Admitting Provider Registered Nurse; Emergency Provider Emergency Medicine; Responsible Provider Registered Nurse; Visit Provider Registered Nurse | DX: F11.90 Opioid use, unspecified, uncomplicated (principal); Z76.5 Malingerer [conscious simulation] | CPT/HCPCS: 90792; 99231; 99232 ==

== ENCOUNTER 2025-05-04 14:53 | Emergency (ER) | payer OTHER, SELFPAY ==
[2025-05-04 14:58] VITALS: BP 107/62; PULSE 68; RESP 18; TEMP 36.1; O2SAT 98; BMI 25.4
--- NOTE | 2025-05-04 14:58 | ED.PSYCH ---
HPI - Psych General Chief Complaint: Psychiatric Symptoms Stated Complaint: crisis Time Seen by Provider: 05/04/25 15:17 Source: patient and RN notes reviewed Mode of arrival: ambulatory Limitations: no limitations History of Present Illness ED Provider: Kaya Yu PA-C HPI Narrative: This is a 54-year-old male, with a past medical history of opioid use disorder, schizophrenia, who presents emergency department with vague suicidal ideation without a specific plan. Patient reports that when I saw him initially he states that he is only here for detox however upon further interviewing, he states that he does not want to discuss the auditory hallucinations that he is experiencing. He states that this is chronic for him. He denies any suicidal or homicidal ideation. He proceeds to then tell me that he feels as though his insides are burning and melting. He states that this has been an ongoing issue. He also reports that he has a headache, no recent head strike or head injury. No loss of consciousness. No dizziness, blurred vision, double vision. States that he has not been sleeping over the last 2 weeks. He denies any chest pain, shortness for breath, abdominal pain, nausea, vomiting or diarrhea. He states that he uses fentanyl, several bags per day, he typically snorts this, does not has a history of IVDA. No other complaints or concerns at this time. Relieving factors: none Exacerbating factors: none Related Data Home Medications ?Medication ?Instructions ?Recorded ?Confirmed methadone 10 mg/mL oral 28 mg PO DAILY 10/31/24 05/04/25 concentrate (Methadose) sertraline 50 mg tablet 50 mg PO DAILY 05/04/25 05/04/25 Previous Rx's ?Medication ?Instructions ?Recorded clonidine HCl 0.1 mg tablet 0.1 mg PO BID@0900,1800 30 days 11/05/24 #60 tabs Allergies Allergy/AdvReac Type Severity Reaction Status Date / Time No Known Allergies Allergy Verified 05/04/25 14:59 Review of Systems Review of Systems: Constitutional : No Fever, No Chills ENT/Mouth : No sore throat, No Rhinorrhea Eyes: No Eye Pain, No Swelling, No Redness Cardiovascular : No Chest Pain, No SOB Respiratory : No Cough, No Sputum Gastrointestinal : No Nausea, No Vomiting, No Diarrhea, No abdominal Pain Genitourinary : No Dysuria, No Hematuria Musculoskeletal : No joint pain, No Myalgias, No Joint Swelling Skin : No Skin Lesions Neuro : No Weakness, No Numbness, No Headache All other systems reviewed and are negative Yes all other systems are reviewed and are negative Constitutional: Constitutional: Reports as per HPI [facility] Past Medical History Medical History Unspecified psychosis Opiate use Social History Social History Household Members: None Housing: Condominium Do you presently have visiting nurse or other home services: No Patient Tobacco Use Status: Current everyday Tobacco user Tobacco use type: Cigarette Cigarette Packs Per Day: 0.75 Cigarettes Per Day: 15.0 Second Hand Smoke Exposure: No Substance Use Type: Other service: No Sexual orientation: Unable to collect Physical Exam Vital Signs: Vital Signs: Last Vital Signs Temp 97.1 F 05/07/25 15:29 Pulse 78 05/07/25 15:29 Resp 18 05/07/25 15:29 BP 157/84 H 05/07/25 15:29 Pulse Ox 100 05/07/25 15:29 O2 Del Method Room Air 05/07/25 15:29 BMI result Body Mass Index 25.4 Course Course Course Narrative: This is a Rapid Medical Examination (RME) performed by Nydia Root PA-C in triage. Full HPI, ROS, assessment and treatment plan per primary provider in the Main ED. Hx: 54 yo M hx schizophrenia here w/ overwhelming pain my head . patient appears paranoid - states his boss put a GPS tracker on him 7 yrs ago and the police have been controlling him and cooking his insides, head feels like it's going to explode. reports inhaling fentanyl, last used today. no other drug use. no etoh consumption. seeking detox. reports SI. no HI. Plan: med clearance, care eval Reevaluation(s) Reevaluation #1: VIVEK Santiago 05/06/25 0717 patient urine culture positive for >100k Klebsiella pneumoniae, sensitive to cefazolin, cefepime, ceftriaxone, ciprofloxacin, gentamicin and Bactrim. Patient treated appropriately with Ceftin. Reevaluation #2: Time: 17:35 Date: 05/06/25 Provider: Aston Chung MD Patient in physician observation for psychiatric evaluation.? No acute events reported overnight. No current complaints. VS stable.? Patient is in bed search status. No acute events during the day shift today. Will continue to monitor. Reevaluation #3: Time: 11: Date: 05/07/25 Provider: Aston Chung MD Physician observation ended at 11:25. Patient to be transferred for inpatient psychiatric hospital admission. She will be transferred to the [facility] in [facility]. No acute events during the night last night and the patient has been stable today.. Medications Administered Discontinued Medications Generic Name Dose Route Start Last Admin Trade Name Freq PRN Reason Stop Dose Admin Acetaminophen 975 mg 05/04/25 15:43 05/04/25 15:48 Acetaminophen 325 Mg Tablet PO 05/04/25 15:44 975 mg ONCE ONE Administration Acetaminophen 975 mg 05/05/25 23:46 05/06/25 00:21 Acetaminophen 325 Mg Tablet PO 05/05/25 23:47 975 mg ONCE ONE Administration Acetaminophen 975 mg 05/07/25 00:00 05/07/25 00:09 Acetaminophen 325 Mg Tablet PO 05/07/25 00:01 325 mg ONCE ONE Administration Cefuroxime Axetil 500 mg 05/04/25 21:00 05/07/25 08:21 Cefuroxime Axetil 500 Mg Tablet PO 05/10/25 23:59 500 mg BID SANDRITA Administration Clonidine HCl 0.1 mg 05/05/25 18:00 05/07/25 08:21 Clonidine Hcl 0.1 Mg Tablet PO 0.1 mg BID@0900,1800 SANDRITA Administration Protocol Ibuprofen 600 mg 05/04/25 15:43 05/04/25 15:48 Ibuprofen 600 Mg Tablet PO 05/04/25 15:44 600 mg ONCE ONE Administration Lorazepam 2 mg 05/04/25 17:36 05/04/25 17:41 Lorazepam 1 Mg Tablet PO 05/04/25 17:37 2 mg ONCE ONE Administration Lorazepam 1 mg 05/06/25 00:17 05/06/25 00:21 Lorazepam 1 Mg Tablet PO 05/06/25 00:18 1 mg ONCE ONE Administration Lorazepam 1 mg 05/07/25 00:18 05/07/25 00:22 Lorazepam 1 Mg Tablet PO 05/07/25 00:19 1 mg ONCE ONE Administration Methadone HCl 28 mg 05/05/25 10:30 05/07/25 08:27 Methadone Hcl 20 Mg/2 Ml Oral.Conc PO 28 mg DAILY SANDRITA Administration Nicotine Polacrilex 2 mg 05/05/25 19:43 05/05/25 20:56 Nicotine Polacrilex 2 Mg Gum BUCCAL 2 mg Q1H PRN Administration Nicotine Cravings Ondansetron HCl 4 mg 05/05/25 23:46 05/05/25 23:48 Ondansetron Odt 4 Mg Tab.Rapdis TRANSLINGU 05/05/25 23:47 4 mg ONCE ONE Administration Ondansetron HCl 4 mg 05/06/25 05:10 05/07/25 04:22 Ondansetron Odt 4 Mg Tab.Rapdis TRANSLINGU 4 mg TID PRN Administration Nausea Sertraline HCl 50 mg 05/05/25 10:30 05/07/25 08:21 Sertraline Hcl 50 Mg Tablet PO 50 mg DAILY SANDRITA Administration Medical Decision Making Medical Decision Making [facility] Narrative: This is a 54-year-old male, with a past medical history of opioid use disorder, schizophrenia, who presents emergency department with vague suicidal ideation without a specific plan. On arrival, vital signs within normal limits. She is speaking in full sentences under no acute distress. Patient also appears to be paranoid, stating that his insides are melting. He states that he wishes to seek detox. He states that he is currently on methadone however continues to use several bags of fentanyl per day. Denies history of IVDA. He also reports headache. He is neurologically intact, no focal deficits on examination. Will treat with ibuprofen and Tylenol. Plan to obtain labs and U tox. Patient will also be seen by the care team. 4:50 PM 05/04/2025 (Kaya Yu PA-C): Labs revealed no leukocytosis, stable H&H, chemistry within normal limits, U tox and urinalysis still pending. We will continue to closely monitor 6:16 PM 05/04/2025 (Kaya Yu PA-C): Urine does appear to be infected, tox revealing opiates, methadone, fentanyl, and cocaine. CPK 300, patient is tolerating fluids, no need for repeat. We will start on Ceftin for UTI. Patient was also given a 1 time dose of oral Ativan given to increased anxiety. Patient will be made a psychiatric bed search. Differential Diagnosis Differential Diagnoses: The differential diagnosis associated with the presentation includes Polysubstance abuse, opioid use disorder, depression anxiety, suicidal ideation, homicidal ideation Lab Data [facility] Lab Attestation statement: I reviewed the patient's lab results. See [facility] 05/04/25 15:53 05/04/25 15:53 Labs: Lab Results 05/04/25 05/04/25 Range/Units 15:53 16:31 WBC 8.8 (4.8-10.8) X10*3/uL RBC 4.27 L (4.60-5.80) X10*6/uL Hgb 13.0 L (14.0-18.0) g/dl Hct 36.7 L (42.0-52.0) % MCV 85.9 (80.0-98.0) fL MCH 30.4 (27.0-33.0) pg MCHC 35.4 (31.0-36.0) g/dl RDW 12.1 (11.0-16.0) % Plt Count 231 (160-400) X10*3/uL MPV 10.2 (9.4-12.4) fL Immature Gran % (Auto) 0.2 (0.0-0.4) % Neut % (Auto) 82.3 H (45-73) % Lymph % (Auto) 14.4 L (20-40) % [place] % (Auto) 2.9 (2-11) % Eos % (Auto) 0.0 (0-4) % Baso % (Auto) 0.2 (0-2) % Lymph # (Auto) 1.3 (1.2-4.9) X10*3/uL [place] # (Auto) 0.3 (0.1-1.2) X10*3/uL Eos # (Auto) 0.0 (0.0-0.4) X10*3/uL Baso # (Auto) 0.0 (0.0-0.2) X10*3/uL Abs Immat Gran (auto) 0.02 (0.00-0.03) X10*3/uL Absolute Neuts (auto) 7.3 (2.0-8.3) x10*3/uL Absolute Nucleated RBC 0.000 (0.0-0.012) X10*3/uL Nucleated RBC % (auto) 0.0 (0.0-0.2) /100WBC Sodium 138 (135-145) mmol/L Potassium 3.8 (3.3-5.1) mmol/L Chloride 104 (96-108) mmol/L Carbon Dioxide 26 (22-29) mmol/L Anion Gap 12 (12-20) BUN 15 (9-16) mg/dL Creatinine 0.88 (0.5-1.4) mg/dL Estim Creat Clear Calc 79.0 Estimated GFR > 60 Random Glucose 140 H (60-115) mg/dL Calcium 9.2 (8.4-10.2) mg/dL Magnesium 2.3 (1.6-2.6) mg/dL Total Bilirubin 0.9 (0.0-1.0) mg/dL AST 34 (5-37) U/L ALT 27 (0-40) U/L Alkaline Phosphatase 76 (39-117) U/L Total Creatine Kinase 326 H (38-174) U/L Total Protein 7.5 (6.5-8.0) g/dL Albumin 4.8 (3.5-5.0) g/dL Lipase < 4 L (8-78) U/L Hold Red Top See Note Urine Color Yellow Urine Appearance Clear Urine pH 5.5 (5.0-9.0) Ur Specific [place] 1.015 (1.005-1.025) Urine Protein Trace (Neg-Trace) mg/dL Urine Glucose (UA) Negative (Negative) mg/dL Urine Ketones Trace (Negative) mg/dL Urine Blood Negative (Negative) Urine Nitrite Negative (Negative) Ur Leukocyte Esterase Small (1+) H (Negative) Urine RBC 0-2 (0-2) /HPF Urine WBC 11-20 H (0-5) /HPF Ur Squamous Epith Cells 0-2 (0-2) /HPF Urine Bacteria None Seen (None Seen) Hyaline Casts 0-2 (0-2) /LPF Salicylates < 5.0 L (15-30) mg/dL Urine Opiates Screen POSITIVE H (Not Detect) Ur Buprenorphine Scrn Not Detected (Not Detect) ng/mL Ur Oxycodone Screen Not Detected (Not Detect) ng/mL Urine Methadone Screen Positive H (Not Detect) ng/mL Urine Fentanyl Screen POSITIVE H (Not Detect) Acetaminophen < 3 (<30) mcg/mL Ur Barbiturates Screen Not Detected (Not Detect) Ur Phencyclidine Scrn Not Detected (Not Detect) Ur Amphetamines Screen Not Detected (Not Detect) U Benzodiazepines Scrn Not Detected (Not Detect) Urine Cocaine Screen POSITIVE H (Not Detect) U Marijuana (THC) Screen Not Detected (Not Detect) Ethyl Alcohol < 10 mg/dL Discharge Plan Discharge Clinical Impression: Schizophrenia, paranoid, Acute UTI Patient Disposition: Xfer Psychiatric Hosp Transfer Details: [facility] [place] Prescriptions: No Action methadone [Methadose] 10 mg/mL concentrate 28 mg PO DAILY Rx Instructions: Partial Fill upon patient request. clonidine HCl 0.1 mg Tablet 0.1 mg PO BID@0900,1800 30 Days Qty: 60 0RF Protocol: Hold for SBP< HOLD for SBP < : 90 sertraline 50 mg tablet 50 mg PO DAILY [facility]Outside] Lion Saleh MD [Primary Care Provider, Internal Medicine] Interventions: Floris-Suicide Risk Severity Scale Last Done: 05/06/25 18:22 Acute Care Transfer Worksheet (ED) Last Done: 05/07/25 15:29 Discharge Date/Time: 05/07/25 15:30 Print Language: Micronesian
--- OUTSIDE RECORDS SUMMARY | 2025-05-04 15:14 | XMS_ITS | Clinical Summary ---
Author Organization [facility] Address [address] [place] [address] Phone Care Team Providers Care Tea Tree Farmer Name Role Phone Lexie Ibarra MD Primary Care Provider Allergies Active Allergy Reactions Criticality Noted Date Comments Naproxen Dizziness 11/11/2010 Medications sertraline (ZOLOFT) 50 mg tablet TAKE 1 TABLET BY MOUTH ONCE A DAY 90 tablet 5 Active sertraline (ZOLOFT) 50 mg tablet Take 1 tablet (50 mg total) by mouth 1 (one) time each day. 30 each 1 5 04/16/20 25 Discontinued Active Problems Problem Noted Date Diagnosed Date History of opioid abuse (CMS/[facility] V24, [facility] V2 8) 06/28/2023 Encounters Date Type Department Care Team Description 03/22/2025 3:30 PM EDT Office Visit Adult [facility] [address] [place] [address] Mckenzie Padilla NP Anxiety (Primary Dx) from Last 3 Months Immunizations Immunization Administration Dates Next Due Tdap Tetanus diptheria [...] Sign Reading Time Taken Comments Blood Pressure 100/63 03/22/2025 3:43 PM EDT Pulse 88 03/22/2025 3:43 PM EDT Temperature 36.6 C (97.8 F) 03/22/2025 3:43 PM EDT Respiratory Rate 18 01/30/2025 12:53 PM EDT Oxygen Saturation 98% 01/30/2025 12:53 PM EDT Inhaled Oxygen Concentration - - Weight 66.2 kg (146 lb) 03/22/2025 3:43 PM EDT Height 160 cm (5' 3 ) 03/22/2025 3:43 PM EDT Body Mass Index 25.86 03/22/2025 3:43 PM EDT Plan of Treatment Health Maintenance Due Date Last Done Comments Colorectal Cancer Screening: Colonoscopy 1972 Hepatitis B Vaccines (1 of 3 - 19+ 3-dose series) 1991 Pneumococcal Vaccine: 50+ Ye ars (1 of 2 - PCV) 1991 Cholesterol Screening (Lipid Panel) 06/22/2022 HIV Screening 06/22/2022 Hepatitis C Screening 06/22/2022 Social Influencers of Health Screening 06/22/2022 Zoster Vaccines (1 of 2) 2022 COVID-19 Vaccine (1 - 2023-2 5 season) 2025 Influenza Vaccine (#1) 2025 DTaP,Tdap,and Td Vaccines (2 - Td or Tdap) 06/28/2033 06/28/2023 RSV Immunization Adult Patie nts (1 - 1-dose 75+ series) 2047 Depression Screening Completed 03/22/2025 HIB Vaccines Aged Out No longer eligi [...] on patient's age to complete this topic Insurance [facility] PL[facility] Care Teams Tea Tree Farmer Relationship Specialty Start Date End Date Lexie Ibarra MD [facility] [place] [id number] PCP - General Internal Medicine 01/30/25
--- OUTSIDE RECORDS SUMMARY | 2025-05-04 15:14 | XMS_ITS | Clinical Summary ---
Author Organization [facility] Address [address] [place] [address] [place] [id number] Care Team Providers Care Terminal Supervisor Name Role Phone Unavailable Primary Care Provider [...] Not on file Insurance [employer] [id number] [facility] NET DENTAL
[2025-05-04 15:30] VITALS: BP 107/62; PULSE 68; RESP 18; TEMP 36.1
[2025-05-04 16:01] LABS: MANUAL DIFF FLAG NO
[2025-05-04 16:02] LABS: Hematocrit 36.7 % (42.0-52.0); Hemoglobin 13.0 g/dl (14.0-18.0); Imm Gran Abs Auto 0.02 X10*3/uL (0.00-0.03); Imm Gran Pct Auto 0.2 % (0.0-0.4); Lymphocytes Absolute Auto 1.3 X10*3/uL (1.2-4.9); Mean Corpuscular HGB Conc 35.4 g/dl (31.0-36.0); Mean Corpuscular Hemoglobin 30.4 pg (27.0-33.0); Mean Corpuscular Volume 85.9 fL (80.0-98.0); NRBC Abs Auto 0.000 X10*3/uL (0.0-0.012); NRBC Pct Auto 0.0 /100WBC (0.0-0.2); Platelet Count 231 X10*3/uL (160-400); Red Blood Count 4.27 X10*6/uL (4.60-5.80); White Blood Count 8.8 X10*3/uL (4.8-10.8)
--- NOTE | 2025-05-04 16:04 | MHC.EDTECH ---
Patient brought in to pod by tech and security from main ED record changer assembler, patient items stored in locker 8. Two bags total.
--- NOTE | 2025-05-04 16:05 | MHC.EDTECH ---
Patient provided urine cup. Unable to void at this time. Urine cup at bedside.
[2025-05-04 16:22] LABS: Acetaminophen LAB < 3 mcg/mL (<30); Alanine Aminotransferase 27 U/L (0-40); Albumin Level 4.8 g/dL (3.5-5.0); Anion Gap 12 (12-20); Aspartate Amino Transferase 34 U/L (5-37); Blood Urea Nitrogen 15 mg/dL (9-16); Calcium 9.2 mg/dL (8.4-10.2); Carbon Dioxide 26 mmol/L (22-29); Chloride 104 mmol/L (96-108); Creatinine Clr Calc Pharmacy 79.0; Estimated Glomerular Filt Rate > 60; Lipase < 4 U/L (8-78); Magnesium 2.3 mg/dL (1.6-2.6); Potassium 3.8 mmol/L (3.3-5.1); Salicylate < 5.0 mg/dL (15-30); Sodium 138 mmol/L (135-145); Total Protein 7.5 g/dL (6.5-8.0)
--- NOTE | 2025-05-04 16:24 | PC.NURSE ---
Pt arrives to the Pod very anxious and suspicious, he is cooperative with labs and providing a urine sample. He paces and is restless. He is given snacks and calls his sister. He reports feeling like his head is on fire and the chip in his head hurts. He reports a SIDHU and is given Tylenol and Motrin.
[2025-05-04 16:35] LABS: Alkaline Phosphatase 76 U/L (39-117)
[2025-05-04 16:44] LABS: Appearance Urine Clear; Glucose Urine UA Negative (Negative); PH 5.5 (5.0-9.0); Specific Gravity - Urine 1.015 (1.005-1.025); UMIC TRIGGER UACC YES
[2025-05-04 16:50] LABS: UACC Culture Trigger YES
[2025-05-04 16:52] LABS: Cannabinoid Screen Urine Not Detected (Not Detect)
--- NOTE | 2025-05-04 17:02 | ECG_ITS ---
Test Reason : drug use Blood Pressure : */* mmHG Vent. Rate : 65 BPM Atrial Rate : 65 BPM P-R Int : 172 ms QRS Dur : 86 ms QT Int : 462 ms P-R-T Axes : 66 -16 58 degrees QTcB Int : 480 ms Normal sinus rhythm Nonspecific T wave abnormality Prolonged QT Abnormal ECG When compared with ECG of 31-Oct-2024 08:21, No significant change was found Referred By: Kaya Yu Electronically Signed By: ANIL SY MD
--- NOTE | 2025-05-04 17:23 | HE.PHANOTE ---
METHADONE CONFIRMATION FORM RECEIVED PATIENT TAKES 28MG FROM [place]. LAST DOSE 28MG ON 05/04/25 @ 0800
--- NOTE | 2025-05-04 17:31 | MHC.EDTECH ---
Patient currently unable to participate with EKG. RN aware
--- NOTE | 2025-05-04 17:42 | PC.NURSE ---
Pt is very restless, pacing and stating Get this out of my head he moans, cries, flops on his bed, paces and wraps a blanket around his head. Staff provides him with headphones to try, pt is unable to tolerate them. The provider is notified and the Pt is given Ativan.
--- NOTE | 2025-05-04 23:12 | PC.NURSE ---
patient has scheduled abx for UTI at 2100. prior to this RN it was reported patient had been super restless/paranoid, after receiving PO ativan patient has been resting and sleeping. at this time patient is resting with eyes closed, resp even and unlabored, nad, repositions self. Per MD Ware ok to hold ceftin tonight and start in AM.
[2025-05-05 01:58] VITALS: BP 180/103; PULSE 62; PULSE 66; RESP 16; TEMP 36.6; O2SAT 97
--- NOTE | 2025-05-05 01:59 | PC.NURSE ---
COWs [address] Harini Ware. patient woke up stating he would like to speak with a doctor about his pain he is having. he states it is burning all on the inside pointing to his head. patient also verbalized previous medications given have not been helpful. MD Ware aware of all above and that med rec was completed by pharmacy but meds are not ordered.
[2025-05-05 06:06] VITALS: RESP 16
--- NOTE | 2025-05-05 06:13 | MHC.EDTECH ---
repeatedly asking to speak to a doctor due to pain caused by the gps [facility] put in me. RN AWARE
[2025-05-05 06:17] VITALS: BP 156/86; PULSE 86; RESP 16; O2SAT 99
--- NOTE | 2025-05-05 09:19 | PC.NURSE ---
Assumed care, report received. Pt is awake early, pacing, moaning with c/o of a SIDHU and burning inside He vomits/ dry heaves and states he feels better. He tolerates eating breakfast and is awiting orders to be placed for Methadone. He is put in [facility] with the TV on and is able to watch TV for alittle while.
[2025-05-05] MEDS: methADONE HCl 20 MG/2 ML ORAL.CONC 28 MG PO (10:47)
[2025-05-05 13:48] VITALS: BP 175/90; PULSE 85; RESP 18; TEMP 36.2; O2SAT 99
--- NOTE | 2025-05-05 16:37 | MHC.EDTECH ---
Patient requesting a number written on a reciept from his pants pocket. This tech obtained patient items, but instructed patient to not go through his items, that I would do it. As I was checking his pockets for the paper I turned my head to talk to an additional staff member, during that conversation I saw patient adjust his pants/gown. This tech immediately questioned patient and instructed him to put whatever he took from his back and place it back on the table. Patient removed a vape from his pants and placed it on the table. This tech instructed patient to sit and wait for security to be perform a search. Patient wanted by security and no other objects found.
--- NOTE | 2025-05-06 00:24 | PC.NURSE ---
pt refused 0024 vitals.
[2025-05-06 00:37] VITALS: RESP 17
--- NOTE | 2025-05-06 06:50 | HE.PHANOTE ---
RE: methadone Last dose verification: 28mg on 05/04/25 @0800 [place]
--- NOTE | 2025-05-06 07:45 | PC.NURSE ---
Assumed care, report received. Pt is awake, calm and cooperative. he has eaten breakfast and is walking around the unit, no current complaints.
[2025-05-06] MEDS: methADONE HCl 20 MG/2 ML ORAL.CONC 28 MG PO (08:03)
[2025-05-06 08:07] VITALS: BP 144/91; PULSE 83; RESP 16; TEMP 36.3; O2SAT 100
[2025-05-06 14:24] VITALS: BP 150/89; PULSE 81; RESP 14; TEMP 36.4; O2SAT 98
[2025-05-06 20:27] VITALS: BP 168/92; PULSE 68; RESP 16; TEMP 37.1; O2SAT 100
--- NOTE | 2025-05-06 21:33 | MHC.CARE ---
Accepted to [facility] 05/07 ETA 4pm ( likely earlier). Accepting Dr. Leal [address] , [place] [address]
--- NOTE | 2025-05-07 00:15 | PC.NURSE ---
pt awake complaining of pain in head, aware, tylenol ordered. Administered tylenol per order, pt refused 2 tabs of tylenol and began talking about a gps tracker implanted inside his body and being tracked by police. Pt expressing anxiety and paranoia, aware, pending new orders.
[2025-05-07 00:18] VITALS: BP 134/78; PULSE 98; RESP 21; O2SAT 99
[2025-05-07 01:13] VITALS: RESP 18
--- NOTE | 2025-05-07 04:23 | PC.NURSE ---
pt presents to the nurses station requesting medication for nausea. provider notified/aware of pt's request. early administration of prn utilized per provider approval. effectiveness pending.
--- NOTE | 2025-05-07 05:04 | PC.NURSE ---
Nurse to nurse provided to JESUS Moscoso at [facility] in [place] at this time. Per Blanka, patient approved for 1600 arrival on 05/07/25.
[2025-05-07 06:33] VITALS: RESP 16
[2025-05-07 08:08] VITALS: BP 157/84; PULSE 78; RESP 18; TEMP 36.2; O2SAT 100
[2025-05-07] MEDS: methADONE HCl 20 MG/2 ML ORAL.CONC 28 MG PO (08:27)
--- NOTE | 2025-05-07 09:04 | PC.NURSE ---
pt medicated per provider order. has no complaints. resting in no apparent distress/watching tv. pending [facility] transfer to [place] [id number]. plan of care ongoing.
--- NOTE | 2025-05-07 13:29 | PHA.MEDREC ---
Pharmacy Consult ? Medication Reconciliation Pharmacy has reviewed the medication reconciliation completed by nursing.
--- NOTE | 2025-05-07 15:24 | PC.NURSE ---
report given to DIONNA Kamara at this time. pt leaving [place] via EMS.
[2025-05-07 15:29] VITALS: BP 157/84; PULSE 78; RESP 18; TEMP 36.2; O2SAT 100
== END 2025-05-07 15:30 ==
PROVIDERS: Physician Assistant Medical; Emergency Provider Emergency Medicine; PCP Internal Medicine
DX: F25.9 Schizoaffective disorder, unspecified (principal); N39.0 Urinary tract infection, site not specified; F23 Brief psychotic disorder; R94.31 Abnormal electrocardiogram [ECG] [EKG]; R45.851 Suicidal ideations; F17.210 Nicotine dependence, cigarettes, uncomplicated; Z51.81 Encounter for therapeutic drug level monitoring; Z79.899 Other long term (current) drug therapy
CPT/HCPCS: 36415; 80053; 80143; 80179; 80307; 81001; 82550; 83690; 83735; 85025; 87086; 93005; 99285; S9485

== ENCOUNTER → 2025-05-04 17:02 | Outpatient (BNV) | payer OTHER, SELFPAY | PROVIDERS: Emergency Provider Emergency Medicine; PCP Internal Medicine; Visit Provider Internal Medicine Cardiovascular Disease | DX: R94.31 Abnormal electrocardiogram [ECG] [EKG] (principal); F11.90 Opioid use, unspecified, uncomplicated | CPT/HCPCS: 93010 ==